=== PATIENT | female | born 1970 | race Caucasian/White ===

== ENCOUNTER → 2018-03-13 | Outpatient (CLI) | payer BC | END | disposition home or self-care (01) | LOC: US 08:55 | DX: N94.89 Other specified conditions associated with female genital organs and menstrual cycle (principal) | CPT/HCPCS: 76856 ==

== ENCOUNTER → 2018-03-14 | Outpatient (CLI) | payer BC ==
[~2018-03-14] MED LIST: IOHEXOL 180 MG/ML 10 ML VIAL.; LIDOCAINE 1% PF 2 ML VIAL.; methylPREDNISolone ACETATE 40 MG/ML VIAL.; methylPREDNISolone ACETATE 80 MG/ML VIAL.
== END | disposition home or self-care (01) ==
LOC: PNCL 08:48
DX: M54.16 Radiculopathy, lumbar region (principal); M48.061 Spinal stenosis, lumbar region without neurogenic claudication; M51.26 Other intervertebral disc displacement, lumbar region; I10 Essential (primary) hypertension; C44.80 Unspecified malignant neoplasm of overlapping sites of skin; Z92.21 Personal history of antineoplastic chemotherapy; Z98.51 Tubal ligation status; Z98.890 Other specified postprocedural states; Z98.84 Bariatric surgery status; Z79.899 Other long term (current) drug therapy; Z79.2 Long term (current) use of antibiotics
CPT/HCPCS: 62323; J1030; J1040; Q9965

== ENCOUNTER → 2019-07-04 | Outpatient (CLI) | payer BC ==
[~2019-07-04] MED LIST changes: +ALLO300T PO; +AMIT50TA PO; +ARIP5TAB13 PO; +BYSTOLIC10 MG PO; +CHOL2000 PO; +DULO60CA6 PO; -IOHEXOL 180 MG/ML 10 ML VIAL.; -LIDOCAINE 1% PF 2 ML VIAL.; +OMEP20CA10 PO; +POLY17PO29 PO; +ROPI0.5T PO; +TAMO20TA PO; -methylPREDNISolone ACETATE 40 MG/ML VIAL.; -methylPREDNISolone ACETATE 80 MG/ML VIAL.
--- NOTE | 2019-07-04 10:43 | RAD ---
Examination: EXT NON VASC LEFT History: History of melanoma involving the back in 2015. Palpable abnormality along the left axilla as reported by the patient. Comparison/Correlation: None Findings: Ultrasound imaging of the left axilla was performed. A lymph node is visualized involving the left lower axilla but this does not correspond to the site of reported palpable abnormality. Cortical thickness is unremarkable. Contour and size are unremarkable. There is no fluid collection, mass, or other suspicious finding at site of the reported palpable abnormality within the central to upper axillary region. There is no suspicious palpable nodule on physical examination by myself. Impression: No suspicious finding. Electronically signed by: Naresh Sher MD (07/04/2019 10:40 AM) [facility]
== END | disposition home or self-care (01) ==
LOC: US 11:08
PROVIDERS: ATTEND Family Medicine
DX: R22.32 Localized swelling, mass and lump, left upper limb (principal)
CPT/HCPCS: 76881

== ENCOUNTER 2019-07-28 03:31 | Emergency (ER) | payer BC ==
[~2019-07-28] VITALS: Ht 175.3 cm; Wt 81.6 kg
[2019-07-28 03:58] LABS: BILIRUBIN,URINE NEGATIVE (NEG); CLARITY,URINE CLEAR; COLOR,URINE YELLOW; NITRITE,URINE NEGATIVE (NEG); PH,URINE 5.5; PROTEIN,URINE NEGATIVE (NEG-TRACE); UROBILINOGEN,URINE 0.2 mg/dL (0.2 mg/dL)
[2019-07-28] MEDS ORDERED: IV NORMAL SALINE 1000ML BAG 1,000 ML IV SCH (04:00)
[2019-07-28] MEDS ORDERED: fentaNYL PF VIAL 100 MCG/2 ML VIAL IV PRN (04:00)
[2019-07-28 04:16] LABS: BASO # 0.1 x10^3/uL (0.0-0.2); BASO % 1 % (0-3); EOS # 0.5 x10^3/uL (0.0-0.7); EOS % 5 % (0-3); HEMATOCRIT 35.3 % (36.0-47.0); HEMOGLOBIN 11.7 g/dL (12.0-15.5); LYMPH # 3.1 x10^3/uL (1.0-4.8); LYMPH % 36 % (24-48); MEAN CORPUSCULAR HEMOGLOBIN 29 pg (25-35); MEAN CORPUSCULAR HGB CONC 33 g/dL (31-37); MEAN CORPUSCULAR VOLUME 87 fL (79-100); MONO # 0.6 x10^3/uL (0.0-1.1); MONO % 7 % (0-9); NEUT # 4.4 x10^3/uL (1.8-7.7); NEUT % 51 % (31-73); PLATELET COUNT 268 x10^3/uL (140-400); RED BLOOD COUNT 4.07 x10^6/uL (3.50-5.40); RED CELL DISTRIBUTION WIDTH 15.8 % (11.5-14.5); WHITE BLOOD COUNT 8.6 x10^3/uL (4.0-11.0)
[2019-07-28 04:25] LABS: GFR 58.7
[2019-07-28 04:26] LABS: BACTERIA,URINE 0 /HPF (0-FEW); SQUAMOUS EPITHELIAL CELL,UR MOD /LPF; WBC,URINE OCC /HPF (0-4)
[2019-07-28] MEDS ORDERED: ONDANSETRON PF 4 MG/2 ML VIAL. IV ONE (04:30)
[2019-07-28 04:31] LABS: ALBUMIN 3.5 g/dL (3.4-5.0); ALBUMIN/GLOBULIN RATIO 0.9 (1.0-1.7); TOTAL BILIRUBIN 0.2 mg/dL (0.2-1.0); TOTAL PROTEIN 7.3 g/dL (6.4-8.2)
--- NOTE | 2019-07-28 04:34 | PHYS DOC ---
Past Medical History Past Medical History: Anxiety, Depression, GERD, Hypertension Past Surgical History: , Hysterectomy, Tubal ligation, Other Additional Past Surgical Histo: sleeve gastrectomy, bilateral breast augmentation Alcohol Use: None Drug Use: None Adult General Chief Complaint Chief Complaint: ABDOMINAL PAIN [facility] HPI Patient is a 49-year-old female who presents with complaint of right upper quadrant abdominal pain that has been present for about the last 4 weeks. She states the pain radiates into her back. She states that she was scheduled for a gallbladder ultrasound for later this morning but she has not been able to manage her vomiting. She states that she has had several episodes of vomiting throughout the night. She rates her pain to be an 8 out of 10. She denies any fever. Patient states that nothing is improving her symptoms.[] Review of Systems Review of Systems Constitutional: Denies fever or chills [] Respiratory: Denies cough or shortness of breath [] Cardiovascular: No additional information not addressed in HPI [] GI: Complains of right upper quadrant abdominal pain with nausea and vomiting. Denies diarrhea [] Neurologic: Denies headache, focal weakness or sensory changes [] All other systems were reviewed and found to be within normal limits, except as documented in this note. Current Medications Current Medications Current Medications Medications (Trade) Dose Ordered Sig/Stanton Start Time Stop Time Status Last Admin Dose Admin Fentanyl Citrate (Fentanyl 2ml Vial) 50 mcg PRN Q15MIN PRN 07/28/19 04:00 07/29/19 03:59 07/28/19 04:11 50 MCG Ondansetron HCl (Zofran) 4 mg 1X ONCE 07/28/19 04:30 07/28/19 04:31 DC 07/28/19 04:11 4 MG Sodium Chloride 1,000 ml @ 1,000 mls/hr Q1H 07/28/19 04:00 07/28/19 04:59 DC 07/28/19 04:11 1,000 MLS/HR Allergies Allergies Allergies Coded Allergies Type Severity Reaction Last Updated Verified No Known Drug Allergies 03/14/18 No Physical Exam Physical Exam Constitutional: Well developed, well nourished, no acute distress, non-toxic appearance. [] HENT: Normocephalic, atraumatic, bilateral external ears normal, oropharynx igor [address], no oral exudates, nose normal. [] Eyes: PERRLA, EOMI, conjunctiva normal, no discharge. [] Neck: Normal range of motion, no tenderness, supple, no stridor. [] Cardiovascular: Mildly tachycardic rate with regular rhythm[] Lungs & Thorax: Bilateral breath sounds clear to auscultation [] Abdomen: Bowel sounds normal, soft, with moderate right upper quadrant tenderness. [] Skin: Warm, dry, no erythema, no rash. [] Extremities: No tenderness, no cyanosis, no clubbing, ROM intact. [] Neurologic: Alert and oriented X 3, no focal deficits noted. [] Current Patient Data Vital Signs Vital Signs Date Time Temp Pulse Resp B/P (MAP) Pulse Ox O2 Delivery O2 Flow Rate FiO2 07/28/19 04:11 14 98 Room Air 07/28/19 03:32 97.5 106 129/80 (96) 97.5 Lab Values Laboratory Tests Test 07/28/19 03:39 07/28/19 04:05 Urine Collection Type Unknown Urine Color Yellow Urine Clarity Clear Urine pH 5.5 Urine Specific [place] 1.010 Urine Protein Negative mg/dL (NEG-TRACE) Urine Glucose (UA) Negative mg/dL (NEG) Urine Ketones (Stick) Negative mg/dL (NEG) Urine Blood Small (NEG) Urine Nitrite Negative (NEG) Urine Bilirubin Negative (NEG) Urine Urobilinogen Dipstick 0.2 mg/dL (0.2 mg/dL) Urine Leukocyte Esterase Negative (NEG) Urine RBC 1-2 /HPF (0-2) Urine WBC Occ /HPF (0-4) Urine Squamous Epithelial Cells Mod /LPF Urine Bacteria 0 /HPF (0-FEW) Urine Mucus Slight /LPF White Blood Count 8.6 x10^3/uL (4.0-11.0) Red Blood Count 4.07 x10^6/uL (3.50-5.40) Hemoglobin 11.7 g/dL (12.0-15.5) L Hematocrit 35.3 % (36.0-47.0) L Mean Corpuscular Volume 87 fL (79-100) Mean Corpuscular Hemoglobin 29 pg (25-35) Mean Corpuscular Hemoglobin Concent 33 g/dL (31-37) Red Cell Distribution Width 15.8 % (11.5-14.5) H Platelet Count 268 x10^3/uL (140-400) Neutrophils (%) (Auto) 51 % (31-73) Lymphocytes (%) (Auto) 36 % (24-48) Monocytes (%) (Auto) 7 % (0-9) Eosinophils (%) (Auto) 5 % (0-3) H Basophils (%) (Auto) 1 % (0-3) Neutrophils # (Auto) 4.4 x10^3/uL (1.8-7.7) Lymphocytes # (Auto) 3.1 x10^3/uL (1.0-4.8) Monocytes # (Auto) 0.6 x10^3/uL (0.0-1.1) Eosinophils # (Auto) 0.5 x10^3/uL (0.0-0.7) Basophils # (Auto) 0.1 x10^3/uL (0.0-0.2) Sodium Level 142 mmol/L (136-145) Potassium Level 4.0 mmol/L (3.5-5.1) Chloride Level 105 mmol/L (98-107) Carbon Dioxide Level 26 mmol/L (21-32) Anion Gap 11 (6-14) Blood Urea Nitrogen 12 mg/dL (7-20) Creatinine 1.0 mg/dL (0.6-1.0) Estimated GFR (Cockcroft-Gault) 58.7 BUN/Creatinine Ratio 12 (6-20) Glucose Level 122 mg/dL (70-99) H Calcium Level 9.0 mg/dL (8.5-10.1) Total Bilirubin 0.2 mg/dL (0.2-1.0) Aspartate Amino Transferase (AST) 20 U/L (15-37) Alanine Aminotransferase (ALT) 21 U/L (14-59) Alkaline Phosphatase 96 U/L (46-116) Total Protein 7.3 g/dL (6.4-8.2) Albumin 3.5 g/dL (3.4-5.0) Albumin/Globulin Ratio 0.9 (1.0-1.7) L Lipase 272 U/L (73-393) Laboratory Tests 07/28/19 04:05 Laboratory Tests 07/28/19 04:05 EKG EKG [] Radiology/Procedures Radiology/Procedures [] Impressions: PROCEDURE: ABDOMEN LTD ABDOMEN LTD History: Right upper quadrant pain. Abdominal pain. Comparison: None. Technique: Transabdominal ultrasound images are obtained of the right upper quadrant. Findings: Visualized pancreas is normal seen due to overlying bowel gas. Liver is normal in echogenicity. Right hepatic lobe measures 15.9 cm. Portal flow is hepatopedal. Cholelithiasis. No gallbladder wall thickening. No pericholecystic fluid. Common bile duct caliber is normal measuring 5 mm in diameter. The right kidney measures 12.0 x 4.4 x 4.2 cm in length and is without evidence of obstruction or stone. Visualized portions of the aorta and IVC have normal caliber. IMPRESSION: 1. Cholelithiasis. Electronically signed by: Jose Huertas DO (07/28/2019 4:59 AM) [facility] Course & Med Decision Making Course & Med Decision Making Pertinent Labs and Imaging studies reviewed. (See chart for details) [] Dragon Disclaimer Dragon Disclaimer This electronic medical record was generated, in whole or in part, using a voice recognition dictation system. Departure Departure Impression: Primary Impression: Cholelithiasis Additional Impression: Biliary colic symptom Disposition: 01 HOME, SELF-CARE Condition: STABLE Referrals: MAU RUTH MD (PCP) Patient Instructions: Biliary Colic, Cholelithiasis Scripts Ondansetron (ONDANSETRON ODT) 4 Mg Tab.rapdis 1 TAB PO PRN Q6-8HRS PRN for NAUSEA, #15 TAB Prov: ANGEL HARRY Jr., DO 07/28/19 Oxycodone/Apap 5-325 (PERCOCET 5-325 MG TABLET ) 1 Each Tablet 1-2 EACH PO Q6H PRN for PAIN, #15 TAB pain Prov: ANGEL HARRY Jr., DO 07/28/19 Problem Qualifiers Primary Impression: Cholelithiasis Cholelithiasis location: gallbladder Cholecystitis presence: without cholecystitis Biliary obstruction: without biliary obstruction Qualified Codes: K80.20 - Calculus of gallbladder without cholecystitis without obstruction ANGEL HARRY Jr., DO Jul 28, 2019 04:34
--- NOTE | 2019-07-28 05:02 | RAD ---
ABDOMEN LTD History: Right upper quadrant pain. Abdominal pain. Comparison: None. Technique: Transabdominal ultrasound images are obtained of the right upper quadrant. Findings: Visualized pancreas is normal seen due to overlying bowel gas. Liver is normal in echogenicity. Right hepatic lobe measures 15.9 cm. Portal flow is hepatopedal. Cholelithiasis. No gallbladder wall thickening. No pericholecystic fluid. Common bile duct caliber is normal measuring 5 mm in diameter. The right kidney measures 12.0 x 4.4 x 4.2 cm in length and is without evidence of obstruction or stone. Visualized portions of the aorta and IVC have normal caliber. IMPRESSION: 1. Cholelithiasis. Electronically signed by: Jose Huertas DO (07/28/2019 4:59 AM) [facility]
[2019-07-28] MEDS ORDERED: ONDA4TAB12 PO (05:22)
[2019-07-28] MEDS ORDERED: OXYC1TAB15 PO (05:22)
[2019-07-28 05:30] VITALS: BP 115/73
== END 2019-07-28 05:28 | disposition home or self-care (01) ==
LOC: ER 03:31
DX: K80.20 Calculus of gallbladder without cholecystitis without obstruction (principal); R11.2 Nausea with vomiting, unspecified; K21.9 Gastro-esophageal reflux disease without esophagitis; I10 Essential (primary) hypertension; F41.9 Anxiety disorder, unspecified; F32.9 Major depressive disorder, single episode, unspecified; Z90.710 Acquired absence of both cervix and uterus; Z98.51 Tubal ligation status; Z98.890 Other specified postprocedural states
CPT/HCPCS: 99285; J2405; J3010; J7030; 36415; 76705; 80053; 81001; 83690; 85025; 96361; 96374; 96375

== ENCOUNTER 2019-07-30 03:36 | Inpatient (IN) | payer BC ==
[2019-07-30] VITALS (10 sets, daily range): BP systolic 122–156; BP diastolic 76–100
[~2019-07-30] VITALS: Ht 175.3 cm; Wt 83.5 kg
[~2019-07-30 03:36] MED LIST changes: +ONDA4TAB12 PO; +OXYC1TAB15 PO
[2019-07-30] MEDS ORDERED: HYDROmorphone 2 MG/ML VIAL IV/SQ PRN (04:00)
[2019-07-30] MEDS ORDERED: IV NORMAL SALINE 1000ML BAG 1,000 ML IV SCH (04:00)
[2019-07-30 04:06] LABS: BASO # 0.1 x10^3/uL (0.0-0.2); BASO % 1 % (0-3); EOS # 0.4 x10^3/uL (0.0-0.7); EOS % 5 % (0-3); HEMATOCRIT 33.1 % (36.0-47.0); HEMOGLOBIN 11.2 g/dL (12.0-15.5); LYMPH # 3.1 x10^3/uL (1.0-4.8); LYMPH % 42 % (24-48); MEAN CORPUSCULAR HEMOGLOBIN 30 pg (25-35); MEAN CORPUSCULAR HGB CONC 34 g/dL (31-37); MEAN CORPUSCULAR VOLUME 87 fL (79-100); MONO # 0.6 x10^3/uL (0.0-1.1); MONO % 8 % (0-9); NEUT # 3.3 x10^3/uL (1.8-7.7); NEUT % 44 % (31-73); PLATELET COUNT 244 x10^3/uL (140-400); RED BLOOD COUNT 3.79 x10^6/uL (3.50-5.40); RED CELL DISTRIBUTION WIDTH 15.8 % (11.5-14.5); WHITE BLOOD COUNT 7.5 x10^3/uL (4.0-11.0)
--- NOTE | 2019-07-30 04:10 | PHYS DOC ---
Past Medical History Past Medical History: Anxiety, Depression, GERD, Hypertension Past Surgical History: Cancer Surgery, , Hysterectomy, Tubal ligation, Other Additional Past Surgical Histo: sleeve gastrectomy,bilateral breast augmentation,L LUMPECTOMY,SKIN CANCER Alcohol Use: None Drug Use: None Adult General Chief Complaint Chief Complaint: ABDOMINAL PAIN HPI HPI Patient is a 49-year-old female who presents with complaint of recurrent right upper quadrant abdominal pain. Patient was seen here just a couple of days ago for the same complaint and patient states that pain has gotten severe at home again. She indicates that she took the Percocet and Zofran that was prescribed which helped but symptoms are out of control at this point. She rates pain at an 8 out of 10. She states that the pain radiates straight into her back.[] Review of Systems Review of Systems Constitutional: Denies fever or chills [] Respiratory: Denies cough or shortness of breath [] Cardiovascular: No additional information not addressed in HPI [] GI: [place] of right upper quadrant abdominal pain with nausea and vomiting. Denies diarrhea [] Integument: Denies rash or skin lesions [] Neurologic: Denies headache, focal weakness or sensory changes [] All other systems were reviewed and found to be within normal limits, except as documented in this note. Current Medications Current Medications Current Medications Medications (Trade) Dose Ordered Sig/Stanton Start Time Stop Time Status Last Admin Dose Admin Hydromorphone HCl (Dilaudid) 1 mg PRN Q15MIN PRN 07/30/19 04:00 07/31/19 03:59 07/30/19 04:07 1 MG Ondansetron HCl (Zofran) 4 mg 1X ONCE 07/30/19 04:30 07/30/19 04:31 DC 07/30/19 04:10 4 MG Sodium Chloride 1,000 ml @ 1,000 mls/hr Q1H 07/30/19 04:00 07/30/19 04:59 DC 07/30/19 04:08 1,000 MLS/HR Allergies Allergies Allergies Coded Allergies Type Severity Reaction Last Updated Verified No Known Drug Allergies 03/14/18 No Physical Exam Physical Exam Constitutional: Well developed, well nourished, in mild distress, non-toxic appearance. [] HENT: Normocephalic, atraumatic, bilateral external ears normal, oropharynx moist, no oral exudates, nose normal. [] Eyes: PERRLA, EOMI, conjunctiva normal, no discharge. [] Neck: Normal range of motion, no tenderness, supple, no stridor. [] Cardiovascular:Heart rate regular rhythm, no murmur [] Lungs & Thorax: Bilateral breath sounds clear to auscultation [] Abdomen: Bowel sounds normal, soft, with moderate right upper quadrant tenderness. [] Skin: Warm, dry, no erythema, no rash. [] Extremities: No tenderness, no cyanosis, no clubbing, ROM intact, no edema. [] Neurologic: Alert and oriented X 3, no focal deficits noted. [] Current Patient Data Vital Signs Vital Signs Date Time Temp Pulse Resp B/P (MAP) Pulse Ox O2 Delivery O2 Flow Rate FiO2 07/30/19 04:29 97 Room Air 07/30/19 04:07 14 07/30/19 03:39 97.7 86 145/111 (122) 97.7 Lab Values Laboratory Tests Test 07/30/19 03:57 07/30/19 05:00 White Blood Count 7.5 x10^3/uL (4.0-11.0) Red Blood Count 3.79 x10^6/uL (3.50-5.40) Hemoglobin 11.2 g/dL (12.0-15.5) L Hematocrit 33.1 % (36.0-47.0) L Mean Corpuscular Volume 87 fL (79-100) Mean Corpuscular Hemoglobin 30 pg (25-35) Mean Corpuscular Hemoglobin Concent 34 g/dL (31-37) Red Cell Distribution Width 15.8 % (11.5-14.5) H Platelet Count 244 x10^3/uL (140-400) Neutrophils (%) (Auto) 44 % (31-73) Lymphocytes (%) (Auto) 42 % (24-48) Monocytes (%) (Auto) 8 % (0-9) Eosinophils (%) (Auto) 5 % (0-3) H Basophils (%) (Auto) 1 % (0-3) Neutrophils # (Auto) 3.3 x10^3/uL (1.8-7.7) Lymphocytes # (Auto) 3.1 x10^3/uL (1.0-4.8) Monocytes # (Auto) 0.6 x10^3/uL (0.0-1.1) Eosinophils # (Auto) 0.4 x10^3/uL (0.0-0.7) Basophils # (Auto) 0.1 x10^3/uL (0.0-0.2) Sodium Level 138 mmol/L (136-145) Potassium Level 4.0 mmol/L (3.5-5.1) Chloride Level 101 mmol/L (98-107) Carbon Dioxide Level 25 mmol/L (21-32) Anion Gap 12 (6-14) Blood Urea Nitrogen 9 mg/dL (7-20) Creatinine 1.1 mg/dL (0.6-1.0) H Estimated GFR (Cockcroft-Gault) 52.6 BUN/Creatinine Ratio 8 (6-20) Glucose Level 101 mg/dL (70-99) H Calcium Level 8.9 mg/dL (8.5-10.1) Total Bilirubin 0.2 mg/dL (0.2-1.0) Aspartate Amino Transferase (AST) 21 U/L (15-37) Alanine Aminotransferase (ALT) 22 U/L (14-59) Alkaline Phosphatase 92 U/L (46-116) Total Protein 7.2 g/dL (6.4-8.2) Albumin 3.6 g/dL (3.4-5.0) Albumin/Globulin Ratio 1.0 (1.0-1.7) Lipase 175 U/L (73-393) Urine Collection Type Unknown Urine Color Yellow Urine Clarity Clear Urine pH 5.5 Urine Specific [place] <=1.005 Urine Protein Negative mg/dL (NEG-TRACE) Urine Glucose (UA) Negative mg/dL (NEG) Urine Ketones (Stick) Negative mg/dL (NEG) Urine Blood Negative (NEG) Urine Nitrite Negative (NEG) Urine Bilirubin Negative (NEG) Urine Urobilinogen Dipstick 0.2 mg/dL (0.2 mg/dL) Urine Leukocyte Esterase Negative (NEG) Urine RBC Rare /HPF (0-2) Urine WBC Rare /HPF (0-4) Urine Squamous Epithelial Cells Few /LPF Urine Bacteria 0 /HPF (0-FEW) Urine Mucus Slight /LPF Laboratory Tests 07/30/19 03:57 Laboratory Tests 07/30/19 03:57 EKG EKG [] Radiology/Procedures Radiology/Procedures [] Course & Med Decision Making Course & Med Decision Making Pertinent Labs and Imaging studies reviewed. (See chart for details) [] Dragon Disclaimer Dragon Disclaimer This electronic medical record was generated, in whole or in part, using a voice recognition dictation system. Departure Departure Impression: Primary Impression: Biliary colic Disposition: ADMITTED INPATIENT Admitting Physician: Mau Ruth Condition: IMPROVED Referrals: MAU RUTH MD (PCP) ANGEL HARRY Jr. DO Jul 30, 2019 04:10
[2019-07-30 04:13] LABS: CALCIUM 8.9 mg/dL (8.5-10.1); CREATININE 1.1 mg/dL (0.6-1.0); GFR 52.6
[2019-07-30 04:17] LABS: ALBUMIN 3.6 g/dL (3.4-5.0); TOTAL BILIRUBIN 0.2 mg/dL (0.2-1.0); TOTAL PROTEIN 7.2 g/dL (6.4-8.2)
[2019-07-30] MEDS ORDERED: ONDANSETRON PF 4 MG/2 ML VIAL. IV ONE (04:30)
[2019-07-30 05:28] LABS: BILIRUBIN,URINE NEGATIVE (NEG); CLARITY,URINE CLEAR; COLOR,URINE YELLOW; NITRITE,URINE NEGATIVE (NEG); PH,URINE 5.5; PROTEIN,URINE NEGATIVE (NEG-TRACE); UROBILINOGEN,URINE 0.2 mg/dL (0.2 mg/dL)
[2019-07-30 05:33] LABS: BACTERIA,URINE 0 /HPF (0-FEW); RBC,URINE RARE /HPF (0-2); SQUAMOUS EPITHELIAL CELL,UR FEW /LPF; WBC,URINE RARE /HPF (0-4)
[2019-07-30] MEDS ORDERED: ONDANSETRON PF 4 MG/2 ML VIAL. IV PRN ×2 (06:00→12:15)
[2019-07-30] MEDS: fentaNYL PF VIAL 100 MCG/2 ML VIAL IV PRN ×3 (06:42→11:28)
[2019-07-30] MEDS: IV NORMAL SALINE 1000ML BAG 1,000 ML IV SCH ×3 (06:43→21:08)
[2019-07-30] MEDS ORDERED: IBUP-1027 PO (07:41)
[2019-07-30] MEDS ORDERED: ACET500T68 PO (07:41)
[2019-07-30] MEDS ORDERED: NAPR-634 PO (07:41)
[2019-07-30] MEDS ORDERED: PANTOPRAZOLE IV PUSH 40 MG VIAL. IVP ONE (08:15)
[2019-07-30] MEDS ORDERED: BUPIVACAINE-EPI 0.25%-1:200000 MPF 30 ML VIAL. INJ ONE (08:45)
--- NOTE | 2019-07-30 09:54 | PDOC ---
Subjective: Subjective: 49 y/o female who has seen Dr. Mandujano recently for worsening RUQ pain w/ bloating and nausea - all exacerbated by eating. Pain radiates to epigastrium and to back. Admitted through ER last night. Objective: Vital Signs: Vital Signs Date Time Temp Pulse Resp B/P (MAP) Pulse Ox O2 Delivery O2 Flow Rate FiO2 07/30/19 09:30 Room Air 07/30/19 06:42 97 07/30/19 06:09 72 18 120/65 (83) 07/30/19 05:30 97.5 97.5 Labs: Laboratory Tests Test 07/30/19 03:57 07/30/19 05:00 White Blood Count 7.5 x10^3/uL Red Blood Count 3.79 x10^6/uL Hemoglobin 11.2 g/dL Hematocrit 33.1 % Mean Corpuscular Volume 87 fL Mean Corpuscular Hemoglobin 30 pg Mean Corpuscular Hemoglobin Concent 34 g/dL Red Cell Distribution Width 15.8 % Platelet Count 244 x10^3/uL Neutrophils (%) (Auto) 44 % Lymphocytes (%) (Auto) 42 % Monocytes (%) (Auto) 8 % Eosinophils (%) (Auto) 5 % Basophils (%) (Auto) 1 % Neutrophils # (Auto) 3.3 x10^3/uL Lymphocytes # (Auto) 3.1 x10^3/uL Monocytes # (Auto) 0.6 x10^3/uL Eosinophils # (Auto) 0.4 x10^3/uL Basophils # (Auto) 0.1 x10^3/uL Sodium Level 138 mmol/L Potassium Level 4.0 mmol/L Chloride Level 101 mmol/L Carbon Dioxide Level 25 mmol/L Anion Gap 12 Blood Urea Nitrogen 9 mg/dL Creatinine 1.1 mg/dL Estimated GFR (Cockcroft-Gault) 52.6 BUN/Creatinine Ratio 8 Glucose Level 101 mg/dL Calcium Level 8.9 mg/dL Total Bilirubin 0.2 mg/dL Aspartate Amino Transf (AST/SGOT) 21 U/L Alanine Aminotransferase (ALT/SGPT) 22 U/L Alkaline Phosphatase 92 U/L Total Protein 7.2 g/dL Albumin 3.6 g/dL Albumin/Globulin Ratio 1.0 Lipase 175 U/L Urine Collection Type Unknown Urine Color Yellow Urine Clarity Clear Urine pH 5.5 Urine Specific [place] <=1.005 Urine Protein Negative mg/dL Urine Glucose (UA) Negative mg/dL Urine Ketones (Stick) Negative mg/dL Urine Blood Negative Urine Nitrite Negative Urine Bilirubin Negative Urine Urobilinogen Dipstick 0.2 mg/dL Urine Leukocyte Esterase Negative Urine RBC Rare /HPF Urine WBC Rare /HPF Urine Squamous Epithelial Cells Few /LPF Urine Bacteria 0 /HPF Urine Mucus Slight /LPF Imaging: Abd SS 07/28 IMPRESSION: 1. Cholelithiasis. CBD normal - 5mm. HIDA 07/28 IMPRESSION: 1. The cystic duct and common bile duct are patent. Negative for acute cholecystitis. 2. The gallbladder ejection fraction is normal - 94%. PE: GEN: NAD - present HEENT: Atraumatic, PERRL LUNGS: CTAB HEART: RRR ABD: NABS, S/ND, epigastric to RUQ discomfort EXTREMITY: No edema SKIN: No rashes, no jaundice NEURO/PSYCH: A & O 3 A/P: RUQ pain, nausea, bloating Cholelithiasis - normal LFTs and CBD Anemia GERD - had EGD @ [facility] in 2017, on PPI S/p sleeve gastrectomy -- Await surgical opinion re: cholecystectomy/IOC. Check anemia parameters for completeness. Continue PPI - IV for now. YINKA JOSUE Jul 30, 2019 09:54
--- NOTE | 2019-07-30 09:59 | PDOC2 ---
CONSULT Date of Consult Date of Consult DATE: 07/30/19 TIME: 09:55 History of Present Illness Reason for Visit: The patient is a 49 year old female who reported to the ER due to abdominal pain. The pain has been located in the right upper quadrant. She presented initially a couple of days ago with similar complaints and a sonogram showed gallstones. She was then released, but returned with persistent and worsening pain. The pain radiates to the back with associated nausea. She has had less severe similar episodes over the last month. Past Medical History Past Medical History hypertension, prior melanoma Past Surgical History Past Surgical History Csection, abdominoplasty, lap hysterectomy, melanoma back surgery, lumpectomy for benign breast disease, laparoscopic sleeve procedure, back surgery Social History Quit Drugs: None Lives: with Family Current Problem List Problem List Problems Medical Problems: (1) Biliary colic Status: Acute Current Medications Current Medications Current Medications Hydromorphone HCl (Dilaudid) 1 mg PRN Q15MIN PRN IV/SQ PAIN GREATER THAN 3/10 Last administered on 07/30/19at 04:07; Start 07/30/19 at 04:00; Stop 07/31/19 at 03:59 Sodium Chloride 1,000 ml @ 1,000 mls/hr Q1H IV Last administered on 07/30/19at 04:08; Start 07/30/19 at 04:00; Stop 07/30/19 at 04:59; Status DC Ondansetron HCl (Zofran) 4 mg 1X ONCE IV Last administered on 07/30/19at 04:10; Start 07/30/19 at 04:30; Stop 07/30/19 at 04:31; Status DC Ondansetron HCl (Zofran) 4 mg PRN Q8HRS PRN IV NAUSEA/VOMITING Last admin istered on 07/30/19at 09:29; Start 07/30/19 at 06:00; Stop 07/31/19 at 05:59 Fentanyl Citrate (Fentanyl 2ml Vial) 50 mcg PRN Q1HR PRN IV SEVERE PAIN 7-10 Last administered on 07/30/19at 08:26; Start 07/30/19 at 06:00; Stop 07/31/19 at 05:59 Sodium Chloride 1,000 ml @ 125 mls/hr Q8H IV Last administered on 07/30/19at 06:43; Start 07/30/19 at 06:30; Stop 07/31/19 at 06:29 Pantoprazole Sodium (PROTONIX VIAL for IV PUSH) 40 mg 1X ONCE IVP Last administered on 07/30/19at 08:26; Start 07/30/19 at 08:15; Stop 07/30/19 at 08:17; Status DC Bupivacaine HCl/ Epinephrine Bitart (Sensorcaine-Epi 0.25%-1:860460 Mpf) 30 ml 1X ONCE INJ ; Start 07/30/19 at 08:45; Stop 07/30/19 at 08:46; Status DC Active Scripts Active Ondansetron Odt (Ondansetron) 4 Mg Tab.rapdis 1 Tab PO PRN Q6-8HRS PRN Percocet 5-325 Mg Tablet (Oxycodone/Acetaminophen) 1 Each Tablet 1-2 Each PO Q6H PRN pain Reported Acetaminophen 500 Mg Tablet 1 Tab PO PRN Q6HRS PRN 15 Days Ibuprofen 400 Mg Tablet 400 Mg PO PRN Q8HRS PRN Naproxen Sodium 220 Mg Tablet 220 Mg PO DAILY PRN Tamoxifen Citrate 20 Mg Tablet 1 Tab PO HS Allopurinol 300 Mg Tablet 1 Tab PO DAILY Vitamin D (Cholecalciferol (Vitamin D3)) 2,000 Unit Capsule 1 Cap PO DAILY Requip (Ropinirole Hcl) 0.5 Mg Tablet 0.25 Mg PO HS Abilify (Aripiprazole) 5 Mg Tablet 5 Mg PO DAILY Cymbalta (Duloxetine Hcl) 60 Mg Capsule. 1 Cap PO DAILY Miralax (Polyethylene Glycol 3350) 17 Gm Powd.pack 1 Packet PO DAILY Bystolic (Nebivolol) 10 Mg Tablet 10 Mg PO DAILY Amitriptyline Hcl 50 Mg Tablet 1 Tab PO QHS Omeprazole 20 Mg Capsule.dr 20 Mg PO DAILY Allergies Allergies: Coded Allergies: No Known Drug Allergies (Unverified , 03/14/18) ROS General: No: Chills, Night Sweats, Fatigue, Malaise, Appetite, Other PSYCHOLOGICAL ROS: No: Anxiety, Behavioral Disorder, Concentration difficultie, Decreased libido, Depression, Disorientation, Hallucinations, Hostility, Irritablity, Memory difficulties, Mood Swings, Obsessive thoughts, Physical abuse, Sexual abuse, Sleep disturbances, Suicidal ideation, Other Eyes: No Blurry vision, No Decreased vision, No Double vision, No Dry eyes, No Excessive tearing, No Eye Pain, No Itchy Eyes, No Loss of vision, No Photophobia, No Scotomata, No Uses contacts, No Uses glasses, No Other HEENT: No: Heacaches, Visual Changes, Hearing change, Nasal congestion, Nasal discharge, Oral lesions, Sinus pain, Sore Throat, Epistaxis, Sneezing, Snoring, Tinnitus, Vertigo, Vocal changes, Other ALLERGY AND IMMUNOLOGY: No: Hives, Insect Bite Sensitivity, Itchy/Watery Eyes, Nasal Congestion, Post Nasal Drip, Seasonal Allergies, Other ENDOCRINE: No: Breast Changes, Galactorrhea, Hair Pattern Changes, Hot Flashes, Malaise/lethargy, Mood Swings, Palpitations, Polydipsia/polyuria, Skin Changes, Temperature Intolerance, Unexpected Weight Changes, Other Cardiovascular: No Chest Pain, No Palpitations, No Orthopnea, No Paroxysmal Noc. Dyspnea, No Edema, No Lt Headedness, No Other Gastrointestinal: Yes Nausea Genitourinary: No Dysuria, No Frequency, No Incontinence, No Hematuria, No Retention, No Discharge, No Urgency, No Pain, No Flank Pain, No Other, No , No , No , No , No , No , No Musculoskeletal: No Gait Disturbance, No Joint Pain, No Joint Stiffness, No Joint Swelling, No Muscle Pain, No Muscular Weakness, No Pain In:, No Swelling In:, No Other Neurological: No Behavorial Changes, No Bowel/Bladder ControlChng, No Confusion, No Dizziness, No Gait Disturbance, No Headaches, No Impaired Coord/balance, No Memory Loss, No Numbness/Tingling, No Seizures, No Speech Problems, No Tremors, No Visual Changes, No Weakness, No Other Skin: No Dry Skin, No Eczema, No Hair Changes, No Lumps, No Mole Changes, No Mottling, No Nail Changes, No Pruritus, No Rash, No Skin Lesion Changes, No Other, No Acne Physical Exam General: Alert, Oriented X3, Cooperative HEENT: Atraumatic Lungs: Clear to auscultation Heart: Regular rate Abdomen: Soft (tender with palpation RUQ) Extremities: No clubbing, No cyanosis Skin: No rashes Neuro: Normal speech Psych/Mental Status: Mental status NL Vitals VITALS Vital Signs Date Time Temp Pulse Resp B/P (MAP) Pulse Ox O2 Delivery O2 Flow Rate FiO2 07/30/19 09:30 Room Air 07/30/19 06:42 97 07/30/19 06:09 72 18 120/65 (83) 07/30/19 05:30 97.5 97.5 Labs Labs Laboratory Tests Test 07/30/19 03:57 07/30/19 05:00 White Blood Count 7.5 x10^3/uL (4.0-11.0) Red Blood Count 3.79 x10^6/uL (3.50-5.40) Hemoglobin 11.2 g/dL (12.0-15.5) Hematocrit 33.1 % (36.0-47.0) Mean Corpuscular Volume 87 fL (79-100) Mean Corpuscular Hemoglobin 30 pg (25-35) Mean Corpuscular Hemoglobin Concent 34 g/dL (31-37) Red Cell Distribution Width 15.8 % (11.5-14.5) Platelet Count 244 x10^3/uL (140-400) Neutrophils (%) (Auto) 44 % (31-73) Lymphocytes (%) (Auto) 42 % (24-48) Monocytes (%) (Auto) 8 % (0-9) Eosinophils (%) (Auto) 5 % (0-3) Basophils (%) (Auto) 1 % (0-3) Neutrophils # (Auto) 3.3 x10^3/uL (1.8-7.7) Lymphocytes # (Auto) 3.1 x10^3/uL (1.0-4.8) Monocytes # (Auto) 0.6 x10^3/uL (0.0-1.1) Eosinophils # (Auto) 0.4 x10^3/uL (0.0-0.7) Basophils # (Auto) 0.1 x10^3/uL (0.0-0.2) Sodium Level 138 mmol/L (136-145) Potassium Level 4.0 mmol/L (3.5-5.1) Chloride Level 101 mmol/L (98-107) Carbon Dioxide Level 25 mmol/L (21-32) Anion Gap 12 (6-14) Blood Urea Nitrogen 9 mg/dL (7-20) Creatinine 1.1 mg/dL (0.6-1.0) Estimated GFR (Cockcroft-Gault) 52.6 BUN/Creatinine Ratio 8 (6-20) Glucose Level 101 mg/dL (70-99) Calcium Level 8.9 mg/dL (8.5-10.1) Total Bilirubin 0.2 mg/dL (0.2-1.0) Aspartate Amino Transf (AST/SGOT) 21 U/L (15-37) Alanine Aminotransferase (ALT/SGPT) 22 U/L (14-59) Alkaline Phosphatase 92 U/L (46-116) Total Protein 7.2 g/dL (6.4-8.2) Albumin 3.6 g/dL (3.4-5.0) Albumin/Globulin Ratio 1.0 (1.0-1.7) Lipase 175 U/L (73-393) Urine Collection Type Unknown Urine Color Yellow Urine Clarity Clear Urine pH 5.5 Urine Specific [place] <=1.005 Urine Protein Negative mg/dL (NEG-TRACE) Urine Glucose (UA) Negative mg/dL (NEG) Urine Ketones (Stick) Negative mg/dL (NEG) Urine Blood Negative (NEG) Urine Nitrite Negative (NEG) Urine Bilirubin Negative (NEG) Urine Urobilinogen Dipstick 0.2 mg/dL (0.2 mg/dL) Urine Leukocyte Esterase Negative (NEG) Urine RBC Rare /HPF (0-2) Urine WBC Rare /HPF (0-4) Urine Squamous Epithelial Cells Few /LPF Urine Bacteria 0 /HPF (0-FEW) Urine Mucus Slight /LPF Laboratory Tests Test 07/30/19 03:57 07/30/19 05:00 White Blood Count 7.5 x10^3/uL (4.0-11.0) Red Blood Count 3.79 x10^6/uL (3.50-5.40) Hemoglobin 11.2 g/dL (12.0-15.5) Hematocrit 33.1 % (36.0-47.0) Mean Corpuscular Volume 87 fL (79-100) Mean Corpuscular Hemoglobin 30 pg (25-35) Mean Corpuscular Hemoglobin Concent 34 g/dL (31-37) Red Cell Distribution Width 15.8 % (11.5-14.5) Platelet Count 244 x10^3/uL (140-400) Neutrophils (%) (Auto) 44 % (31-73) Lymphocytes (%) (Auto) 42 % (24-48) Monocytes (%) (Auto) 8 % (0-9) Eosinophils (%) (Auto) 5 % (0-3) Basophils (%) (Auto) 1 % (0-3) Neutrophils # (Auto) 3.3 x10^3/uL (1.8-7.7) Lymphocytes # (Auto) 3.1 x10^3/uL (1.0-4.8) Monocytes # (Auto) 0.6 x10^3/uL (0.0-1.1) Eosinophils # (Auto) 0.4 x10^3/uL (0.0-0.7) Basophils # (Auto) 0.1 x10^3/uL (0.0-0.2) Sodium Level 138 mmol/L (136-145) Potassium Level 4.0 mmol/L (3.5-5.1) Chloride Level 101 mmol/L (98-107) Carbon Dioxide Level 25 mmol/L (21-32) Anion Gap 12 (6-14) Blood Urea Nitrogen 9 mg/dL (7-20) Creatinine 1.1 mg/dL (0.6-1.0) Estimated GFR (Cockcroft-Gault) 52.6 BUN/Creatinine Ratio 8 (6-20) Glucose Level 101 mg/dL (70-99) Calcium Level 8.9 mg/dL (8.5-10.1) Total Bilirubin 0.2 mg/dL (0.2-1.0) Aspartate Amino Transf (AST/SGOT) 21 U/L (15-37) Alanine Aminotransferase (ALT/SGPT) 22 U/L (14-59) Alkaline Phosphatase 92 U/L (46-116) Total Protein 7.2 g/dL (6.4-8.2) Albumin 3.6 g/dL (3.4-5.0) Albumin/Globulin Ratio 1.0 (1.0-1.7) Lipase 175 U/L (73-393) Urine Collection Type Unknown Urine Color Yellow Urine Clarity Clear Urine pH 5.5 Urine Specific [place] <=1.005 Urine Protein Negative mg/dL (NEG-TRACE) Urine Glucose (UA) Negative mg/dL (NEG) Urine Ketones (Stick) Negative mg/dL (NEG) Urine Blood Negative (NEG) Urine Nitrite Negative (NEG) Urine Bilirubin Negative (NEG) Urine Urobilinogen Dipstick 0.2 mg/dL (0.2 mg/dL) Urine Leukocyte Esterase Negative (NEG) Urine RBC Rare /HPF (0-2) Urine WBC Rare /HPF (0-4) Urine Squamous Epithelial Cells Few /LPF Urine Bacteria 0 /HPF (0-FEW) Urine Mucus Slight /LPF Assessment/Plan Assessment/Plan 49 year old female with RUQ pain, recurrent, gallstones, nml LFTs and WBC; rec lap anaid. The details and risks of surgery were discussed with the patient. She understands and would like to proceed. PHYLICIA FINLEY MD Jul 30, 2019 09:59
[2019-07-30] MEDS: PANTOPRAZOLE IV PUSH 40 MG VIAL. IVP SCH (10:00)
[2019-07-30] MEDS ORDERED: BUPIVACAINE-EPI 0.5%-1:200000 MPF 30 ML VIAL. INJ ONE (10:15)
[2019-07-30] MEDS ORDERED: PROPOFOL 20 ML IV ONE (10:40)
[2019-07-30] MEDS ORDERED: ONDANSETRON PF 4 MG/2 ML VIAL. ONE (10:41)
[2019-07-30] MEDS ORDERED: LIDOCAINE 2% PF 5 ML VIAL. ONE (10:41)
[2019-07-30] MEDS ORDERED: fentaNYL PF VIAL 100 MCG/2 ML VIAL ONE ×3 (10:41→12:28)
[2019-07-30] MEDS ORDERED: ROCURONIUM 50 MG/5 ML VIAL. ONE (10:41)
[2019-07-30] MEDS ORDERED: MIDAZOLAM HCL/PF 2 MG/2 ML VIAL. ONE (10:41)
[2019-07-30] MEDS ORDERED: IOHEXOL 300 MG/ML 50 ML VIAL. ONE (11:58)
[2019-07-30] MEDS ORDERED: SURGICEL HEMOSTAT 4X8 EACH. ONE (11:58)
[2019-07-30] MEDS ORDERED: BUPIVACAINE MPF 0.5% 30 ML VIAL. ONE (11:59)
[2019-07-30] MEDS ORDERED: IV RINGERS,LACTATED 1000ML 1,000 ML IV SCH (12:03)
[2019-07-30] MEDS ORDERED: HYDROmorphone 2 MG/ML VIAL IV PRN (12:15)
[2019-07-30] MEDS ORDERED: LIDOCAINE 1% PF 2 ML VIAL. ID PRN (12:15)
[2019-07-30] MEDS ORDERED: MORPHINE SULFATE 2 MG/ML VIAL. IV PRN (12:15)
[2019-07-30] MEDS ORDERED: fentaNYL PF VIAL 100 MCG/2 ML VIAL IV PRN ×2 (12:15)
[2019-07-30] MEDS ORDERED: PROCHLORPERAZINE 10 MG/2 ML VIAL. IV PRN (12:15)
[2019-07-30] MEDS ORDERED: SEVOFLURANE 61 TO 120 MINUTES. IH ONE (12:29)
[2019-07-30] MEDS ORDERED: NEOSTIGMINE METHYLSULFATE 5 MG/5 ML SYRINGE. ONE (12:29)
[2019-07-30] MEDS ORDERED: GLYCOPYRROLATE 1 MG/5 ML VIAL. ONE (12:30)
[2019-07-30] MEDS ORDERED: ePHEDrine PF IN SALINE 50 MG/10 ML SYRINGE. IV ONE (12:31)
[2019-07-30] MEDS ORDERED: KETOROLAC 30 MG/ML VIAL. ONE (12:36)
--- NOTE | 2019-07-30 13:37 | PDOC4 ---
Operative Note Operative Note Operative Note: Preoperative Diagnosis: Symptomatic cholelithiasis Postoperative Diagnosis: Same Procedure: Laparoscopic cholecystectomy with intraoperative cholangiogram Surgeons: Abdi Personal Assistant: Ana Maria FERRO Anesthesia: Gen. Estimated Blood Loss: 10 mL Specimen: Gallbladder to pathology Drains: None Complications: None Indications: The patient is a 49-year-old female who is been experiencing recurrent upper abdominal pain consistent with biliary colic. Surgical treatment was offered by means of a laparoscopic cholecystectomy. The risks of surgery were discussed which include bleeding, infection, bile duct injury, bile leak, pain, the potential for additional surgeries or procedures. The patient understands and would like to proceed. Description: The patient was taken to the operating room and laid supine on the operating table. General anesthesia was performed. The abdomen was prepped with ChloraPrep and draped in a standard surgical fashion. A small incision was made in the patient's right abdomen through which a visualized 5 mm trocar was inserted. A pneumoperitoneum was created and the laparoscope was introduced. In the upper midabdomen a 5 mm trocar was inserted and in the right upper quadrant two 2.3 mm mini lap graspers were inserted. The gallbladder was retracted cephalad. The cystic duct was dissected free from surrounding tissues. One clip was placed on the duct near the gallbladder junction. An opening was made in the duct and a cholangiocatheter placed within and secured with a clip. Using contrast dye and fluoroscopy an intraoperative cholangiogram was performed that appeared unremarkable. The clip and catheter were then withdrawn. Three clips were placed on the cystic duct and it was divided. The cystic artery was then identified, dissected free, doubly clipped and divided as well. The gallbladder was then mobilized away from the liver with cautery. The inferior 5 millimeter trocar was exchanged for an 11 millimeter trocar. The gallbladder was then placed in an endoscopic bag and extracted at that trocar site. The fascia there was closed with an 0 Vicryl suture. All blood and irrigation fluid was suctioned and hemostasis was good. The remaining ports were removed and the pneumoperitoneum was relieved. The skin incisions were injected with half percent Marcaine with epinephrine, and all were closed using 4-0 Monocryl suture. Steri-Strips and dressings were then applied. The patient tolerated the procedure well and was sent to the recovery room in stable condition. At the end of the case all counts were correct. PHYLICIA FINLEY MD 13, 2019 13:37
[2019-07-30] MEDS ORDERED: oxyCODONE/APAP 5/325 1 TAB TABLET PO PRN (13:45)
--- NOTE | 2019-07-30 14:45 | RAD ---
Examination: CHOLANGIOGRAM INTRAOPERATIVE History: Intraoperative cholangiogram. Cholelithiasis. Comparison/Correlation: None Findings: Fluoroscopy was utilized for 0.34 minutes. A total of 4 images were provided. There is no suspicious filling defect involving the cystic duct remnant or the common bile duct. The common hepatic duct and intrahepatic biliary tree are also grossly unremarkable on images provided. Contrast is noted within the duodenum. Impression: No suspicious filling defects or evidence of stricture. Electronically signed by: Naresh Sher MD (07/30/2019 2:43 PM) [facility]
[2019-07-30] MEDS: oxyCODONE/APAP 5/325 1 TAB TABLET PO PRN ×3 (15:16→23:24)
--- NOTE | 2019-07-30 22:17 | HP ---
ADMIT DATE: 07/30/2019 CHIEF COMPLAINT AND HISTORY OF PRESENT ILLNESS: This 49-year-old white female is well known to me from followup. The patient has had over the last several weeks, right upper quadrant abdominal pain. It has worsened over the last week or so associated with nausea and vomiting, made worse by eating. He presented for the second time /in a week for suprapubic abdominal pain, nausea, vomiting through the Emergency Room and was admitted for presumed biliary colic. She did have a HIDA scan that was normal within the last week and an ultrasound of the abdomen showing cholelithiasis. PAST MEDICAL HISTORY: Remarkable for hypertension, GERD, depression, anxiety. PAST SURGICAL HISTORY: Remarkable for prior melanoma removal, , hysterectomy, tubal ligation, bilateral breast augmentations. MEDICATIONS: Brought with the patient, listed on the computer and have been addressed. ALLERGIES: She has no known drug allergies. SOCIAL HISTORY: Nonsmoker, nondrinker, does not use drugs. , lives at home with her and children. FAMILY HISTORY: Positive for breast cancer in the mother, COPD in her father. REVIEW OF SYSTEMS: As mentioned above. PHYSICAL EXAMINATION: GENERAL: She is well-developed, well-nourished white female who is miserable. VITAL SIGNS: Stable. She is afebrile. HEAD, EYES, EARS, NOSE AND THROAT: Unremarkable. No icterus. NECK: Supple, without adenopathy or thyromegaly. CHEST: Clear to auscultation and percussion. HEART: Regular rate and rhythm without S3, S4 or murmur. ABDOMEN: Reveals right upper quadrant tenderness with positive Bedoya sign. EXTREMITIES: Without cyanosis, clubbing, edema. NEUROLOGIC: She is intact. LABORATORY DATA: Initial laboratory shows a CBC that is essentially unremarkable as well as a CMP that was likewise unremarkable. Urinalysis is likewise unremarkable. IMPRESSION: Biliary colic, intractable. PLAN: The patient has been admitted. GI and Surgery will be consulted. The patient will be monitored, managed and treated appropriately. MAU RUTH MD DR: GOLDEN/penny JOB#: [id number] / [id number]
[2019-07-31 03:00] VITALS: BP 122/71
[2019-07-31] MEDS: oxyCODONE/APAP 5/325 1 TAB TABLET PO PRN (05:16)
[2019-07-31 07:00] VITALS: BP 144/88
[2019-07-31] MEDS: PANTOPRAZOLE IV PUSH 40 MG VIAL. IVP SCH (07:30)
--- NOTE | 2019-07-31 08:50 | PDOC ---
SURGICAL PROGRESS NOTE Subjective tolerating diet feels great Vital Signs Vital Signs Date Time Temp Pulse Resp B/P (MAP) Pulse Ox O2 Delivery O2 Flow Rate FiO2 07/31/19 07:06 Room Air 07/31/19 07:00 92 16 144/88 (106) 99 07/31/19 03:00 98.4 98.4 I&O Intake and Output 07/31/19 07:00 Output Total 10 ml Balance -10 ml Output Estimated Blood Loss 10 ml # Voids 5 General: Alert, Oriented X3, Cooperative Abdomen: Soft, Other (ND, lap dressings dry) Labs Laboratory Tests Test 07/30/19 03:57 07/30/19 05:00 White Blood Count 7.5 x10^3/uL (4.0-11.0) Red Blood Count 3.79 x10^6/uL (3.50-5.40) Hemoglobin 11.2 g/dL (12.0-15.5) Hematocrit 33.1 % (36.0-47.0) Mean Corpuscular Volume 87 fL (79-100) Mean Corpuscular Hemoglobin 30 pg (25-35) Mean Corpuscular Hemoglobin Concent 34 g/dL (31-37) Red Cell Distribution Width 15.8 % (11.5-14.5) Platelet Count 244 x10^3/uL (140-400) Neutrophils (%) (Auto) 44 % (31-73) Lymphocytes (%) (Auto) 42 % (24-48) Monocytes (%) (Auto) 8 % (0-9) Eosinophils (%) (Auto) 5 % (0-3) Basophils (%) (Auto) 1 % (0-3) Neutrophils # (Auto) 3.3 x10^3/uL (1.8-7.7) Lymphocytes # (Auto) 3.1 x10^3/uL (1.0-4.8) Monocytes # (Auto) 0.6 x10^3/uL (0.0-1.1) Eosinophils # (Auto) 0.4 x10^3/uL (0.0-0.7) Basophils # (Auto) 0.1 x10^3/uL (0.0-0.2) Sodium Level 138 mmol/L (136-145) Potassium Level 4.0 mmol/L (3.5-5.1) Chloride Level 101 mmol/L (98-107) Carbon Dioxide Level 25 mmol/L (21-32) Anion Gap 12 (6-14) Blood Urea Nitrogen 9 mg/dL (7-20) Creatinine 1.1 mg/dL (0.6-1.0) Estimated GFR (Cockcroft-Gault) 52.6 BUN/Creatinine Ratio 8 (6-20) Glucose Level 101 mg/dL (70-99) Calcium Level 8.9 mg/dL (8.5-10.1) Total Bilirubin 0.2 mg/dL (0.2-1.0) Aspartate Amino Transf (AST/SGOT) 21 U/L (15-37) Alanine Aminotransferase (ALT/SGPT) 22 U/L (14-59) Alkaline Phosphatase 92 U/L (46-116) Total Protein 7.2 g/dL (6.4-8.2) Albumin 3.6 g/dL (3.4-5.0) Albumin/Globulin Ratio 1.0 (1.0-1.7) Lipase 175 U/L (73-393) Urine Collection Type Unknown Urine Color Yellow Urine Clarity Clear Urine pH 5.5 Urine Specific [place] <=1.005 Urine Protein Negative mg/dL (NEG-TRACE) Urine Glucose (UA) Negative mg/dL (NEG) Urine Ketones (Stick) Negative mg/dL (NEG) Urine Blood Negative (NEG) Urine Nitrite Negative (NEG) Urine Bilirubin Negative (NEG) Urine Urobilinogen Dipstick 0.2 mg/dL (0.2 mg/dL) Urine Leukocyte Esterase Negative (NEG) Urine RBC Rare /HPF (0-2) Urine WBC Rare /HPF (0-4) Urine Squamous Epithelial Cells Few /LPF Urine Bacteria 0 /HPF (0-FEW) Urine Mucus Slight /LPF Problem List Problems Medical Problems: (1) Biliary colic Status: Acute Assessment/Plan s/p anaid ok to ok home Fu 2 weeks HAZEL BARBOZA [employer] 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
--- NOTE | 2019-07-31 09:22 | PDOC ---
Subjective: Subjective: A little sore post-op but overall feels so much better. Tolerating diet and passing gas. Plans to discharge today. No previous screening colonoscopy - would like to arrange soon. Objective: Vital Signs: Vital Signs Date Time Temp Pulse Resp B/P (MAP) Pulse Ox O2 Delivery O2 Flow Rate FiO2 07/31/19 07:06 Room Air 07/31/19 07:00 92 16 144/88 (106) 99 07/31/19 03:00 98.4 98.4 Imaging: IOC 07/30 Impression: No suspicious filling defects or evidence of stricture. PE: GEN: NAD, sitting up in bed, dressed to leave, present LUNGS: CTAB HEART: RRR ABD: soft, non-distended NEURO/PSYCH: A & O 3 A/P: S/p cholecystectomy w/ normal IOC -- DC per primary and surgery. Follow-up w/ Dr. Mandujano for screening colonoscopy after recovery from surgery - our office can arrange. YINKA JOSUE Jul 31, 2019 09:22
--- NOTE | 2019-07-31 21:31 | DS ---
DATE OF DISCHARGE: 07/31/2019 PRIMARY DIAGNOSIS: Biliary colic. ADDITIONAL DIAGNOSES: Hypertension and gastroesophageal reflux disease. PROCEDURES: Laparoscopic cholecystectomy. CHIEF COMPLAINT AND HISTORY OF PRESENT ILLNESS: This 49-year-old white female well known to me from followup. The patient over the last several weeks had right upper quadrant pain. It worsened over the last week or so. Nausea and vomiting made worse by eating. She presented for the second time in a week with right upper quadrant abdominal pain, nausea, vomiting through the Emergency Room and admitted for presumed biliary colic. She did have a HIDA scan that was normal last week or so and ultrasound of the abdomen showed cholelithiasis. SUMMARY OF STAY: The patient was admitted. Nausea and pain were controlled. Labs were fairly unremarkable. Surgery saw her, did a laparoscopic cholecystectomy with resolution of her pain other than postoperative pain from surgery and she was felt ready for discharge on the and this was accomplished. DISPOSITION: The patient is discharged to home. DIET: As tolerated. ACTIVITY: As tolerated, office in 2 weeks. DISCHARGE MEDICATIONS: Listed on the med rec and have been addressed. MAU RUTH MD DR: GOLDEN/penny JOB#: [id number] / [id number]
--- NOTE | 2019-08-01 16:06 | PATHOLOGY ---
[facility] Accession Number: [id number] . 01 Material submitted: . gallbladder - GALLBLADDER AND CONTENTS . 01 Clinical history: . RUQ pain cholelithiasis . 02 Diagnosis: Gallbladder, laparoscopic cholecystectomy: - Cholelithiasis. - Chronic cholecystitis with focally increased eosinophils. LBQ 08/01/2019 1006 Local . 02 Comment: There is no evidence of malignancy. (JPM/db; 08/01/2019) . 02 Electronically signed: . Juan Ramon Licona MD, Pathologist NPI- [id number] . 01 Gross description: . Received in formalin labeled "Appl, Samantha, gallbladder and contents," is an intact gallbladder measuring 5.1 x 3.4 x 2.1 cm in greatest dimensions. The serosal surface is wrinkled, pale lopez-joseph to focally hemorrhagic and partially adipose-covered in appearance. A defect is noted in the hepatic surface, measuring 0.1 x 0.1 cm and extending to within 1.5 cm of the infundibulum. Opening the specimen reveals a granular, green-joseph mucosa measuring 0.1 cm in thickness, with a gallbladder wall thickness of up to 0.4 cm. No polyps or nodules are identified grossly. Two granular, yellow-green calculi are present within the specimen, measuring 1.5 cm each in maximum dimension. Rug Cutter Helper sections of the infundibulum, body and fundus are submitted in cassette A1, to representatively include the hepatic surface defect. ([facility]; 07/31/2019) XDC/XDC 07/31/2019 0752 Local . 02 Pathologist provided ICD-10: K80.10 . 02 CPT . 215211 Specimen Comment: A courtesy copy of this report has been sent to [phone] Specimen Comment: [id number], Specimen Comment: Report sent to ,DR HARRY / DR RUTH Performed at: [address], [place] [id number] MD Alexis Dang MD Phone: [phone] Performed at: 02 [facility] [address] [place], [place] [id number] MD Juan Ramon Licona MD Phone: [phone]
== END 2019-07-31 09:15 | disposition home or self-care (01) | DRG 419 ==
LOC: ER 03:36 → 4 NORTH 05:52
PROVIDERS: ADMIT Family Medicine; ATTEND Family Medicine
PROC: BF101ZZ Fluoroscopy of Bile Ducts using Low Osmolar Contrast (ICD-10-PCS; 2019-07-30)
PROC: 0FT44ZZ Resection of Gallbladder, Percutaneous Endoscopic Approach (ICD-10-PCS; principal; 2019-07-30 11:45)
DX: K80.70 Calculus of gallbladder and bile duct without cholecystitis without obstruction (principal); D64.9 Anemia, unspecified; I10 Essential (primary) hypertension; K21.9 Gastro-esophageal reflux disease without esophagitis; Z80.3 Family history of malignant neoplasm of breast; Z82.5 Family history of asthma and other chronic lower respiratory diseases; Z85.820 Personal history of malignant melanoma of skin; Z90.710 Acquired absence of both cervix and uterus; F32.9 Major depressive disorder, single episode, unspecified; F41.9 Anxiety disorder, unspecified; Z98.51 Tubal ligation status; Z98.84 Bariatric surgery status
CPT/HCPCS: 36415; 74300; 76705; 78227; 80053; 81001; 82607; 83540; 83550; 83690; 85025; 96361; 96374; 96375; A7015; A9537; C9113; J0171; J0696; J1170; J1885; J2001; J2250; J2405; J2704; J2710; J3010; J3490; J7030; J7120; Q9967; 99285-25; G0378

== ENCOUNTER → 2021-12-14 | Outpatient (CLI) | payer OTHER ==
[~2021-12-14] MED LIST changes: +ACET500T68 PO; -DULO60CA6 PO; +DULO60CA7 PO; +IBUP-1027 PO; +NAPR-634 PO; -OMEP20CA10 PO; +OMEP20CA16 PO
--- NOTE | 2021-12-14 11:23 | KCIC ---
EXAMINATION: MRI brain without IV contrast INDICATION: Left-sided weakness, status post fall down. COMPARISON: None TECHNIQUE: MRI of the brain was performed using high-resolution multiplanar multisequence imaging. FINDINGS: There is no evidence of acute or subacute infarct, intracranial hemorrhage, extra-axial fluid collect ion, mass, or mass effect. Major arterial flow-voids are present. There are few scattered foci of T2/ FLAIR hyperintensity within the supratentorial white matter, indeterminate. The paranasal sinuses and mastoid air cells are clear. The orbital contents appear within normal limi ts. IMPRESSION: 1. No evidence of significant intracranial abnormality. 2. A few scattered foci of T2/FLAIR hyperintensity within the supratentorial white matter, indetermin ate. Etiology includes chronic microangiopathic disease, sequelae of chronic migraines, demyelinating disease or sequelae of vasculitis. Electronically signed by: Juan A Toth MD (12/14/2021 9:21 AM) [id number]
== END ==
LOC: KCIC MRI 08:00
PROVIDERS: ATTEND Family Medicine
DX: G93.89 Other specified disorders of brain (principal); H53.9 Unspecified visual disturbance; M62.81 Muscle weakness (generalized)
CPT/HCPCS: 70551

== ENCOUNTER 2022-01-10 21:11 | Inpatient (IN) | payer OTHER ==
[~2022-01-10] VITALS: Ht 175.3 cm; Wt 94.3 kg
--- NOTE | 2022-01-10 22:31 | PHYS DOC ---
Past Medical History Past Medical History: Anxiety, Depression, GERD, Hypertension Additional Past Medical Histor: BACK ISSUES Past Surgical History: No Surgical History Additional Past Surgical Histo: sleeve gastrectomy,bilateral breast augmentation,L LUMPECTOMY,SKIN CANCER Smoking Status: Never Smoker Alcohol Use: None Drug Use: None General Adult EDM: Chief Complaint: FATIGUE HPI: HPI: Patient is a 51 year old female presents to the ER with multiple falls, generalized weakness and altered mental status. Family states that has been ongoing progressively for the last 4 weeks. Denies any fevers or chills. Reports nausea vomiting decreased p.o. intake. Patient was seen by a pain management doctor today for her epidural shots for chronic low back pain when she was found to be with a low blood pressure and tachycardia and was sent to the ER for evaluation. Review of Systems: Review of Systems: Constitutional: Fatigue and generalized weakness denies fever or chills. [] Eyes: Denies change in visual acuity. [] HENT: Denies nasal congestion or sore throat. [] Respiratory: Denies cough or shortness of breath. [] Cardiovascular: Denies chest pain or edema. [] GI: Nausea vomiting decreased p.o. intake no abdominal pain : Denies dysuria. [] Musculoskeletal: Chronic low back pain denies back pain or joint pain. [] Integument: Denies rash. [] Neurologic: Denies headache, focal weakness or sensory changes. [] Endocrine: Denies polyuria or polydipsia. [] Lymphatic: Denies swollen glands. [] Psychiatric: Denies depression or anxiety. [] Heart Score: C/O Chest Pain: No Risk Factors: Risk Factors: DM, Current or recent (<one month) smoker, HTN, HLP, family history of CAD, obesity. Risk Scores: Score 0 - 3: 2.5% MACE over next 6 weeks - Discharge Home Score 4 - 6: 20.3% MACE over next 6 weeks - Admit for Clinical Observation Score 7 - 10: 72.7% MACE over next 6 weeks - Early Invasive Strategies Allergies: Allergies: Allergies Coded Allergies Type Severity Reaction Last Updated Verified No Known Drug Allergies 03/14/18 No Physical Exam: PE: Constitutional: Ill-appearing, vomiting HENT: Normocephalic, atraumatic, bilateral external ears normal, oropharynx moist, no oral exudates, nose normal. [] Eyes: PERRLA, EOMI, conjunctiva normal, no discharge. [] Neck: Normal range of motion, no tenderness, supple, no stridor. [] Cardiovascular: Tachycardic, no murmur [] Lungs & Thorax: Bilateral breath sounds clear to auscultation [] Abdomen: Bowel sounds normal, soft, no tenderness, no masses, no pulsatile masses. [] Skin: Pale, poor turgor Back: No tenderness, no CVA tenderness. [] Extremities: No tenderness, no cyanosis, no clubbing, ROM intact, no edema. [] Neurologic: Alert and oriented X 3, normal motor function, normal sensory function, no focal deficits noted. [] Psychologic: Affect normal, judgement normal, mood normal. [] Current Patient Data: Vital Signs: Vital Signs Date Time Temp Pulse Resp B/P (MAP) Pulse Ox O2 Delivery O2 Flow Rate FiO2 01/10/22 21:54 98.2 118 20 126/82 (97) 100 Room Air 98.2 EKG: EKG: [] Patient has EKG with a normal sinus rhythm with a heart rate of 98 a QTC of 423 and IL interval 156. Patient has a leftward axis. No ischemic changes Radiology/Procedures: Radiology/Procedures: [] Exam: Chest one view INDICATION: Altered mental status TECHNIQUE: Frontal view of the chest Comparisons: None FINDINGS: The cardiomediastinal silhouette and pulmonary vessels are within normal limits. Bandlike opacities at lung bases bilaterally. No pleural effusion. IMPRESSION: Bibasilar airspace disease may relate to atelectasis or developing consolidative process. Course & Med Decision Making: Course & Med Decision Making Pertinent Labs and Imaging studies reviewed. (See chart for details) [] Discussed with Dr. Tate. Fluids and antibiotics started. Consult for urology placed Critical care time 32 min Ana Disclaimer: Ana Disclaimer: This electronic medical record was generated, in whole or in part, using a voice recognition dictation system. Date and Time of Assessment Date: Jan 10, 2022 Time: 23:00 Vital Signs Vital Signs: Vital Signs Date Time Temp Pulse Resp B/P (MAP) Pulse Ox O2 Delivery O2 Flow Rate FiO2 01/10/22 21:54 98.2 118 20 126/82 (97) 100 Room Air 98.2 Temperature Source: Oral Respirations Respiratory Effort: Non-Labored, Labored Respiratory Pattern: Normal Cardiovascular Pulse Rhythm: Regular Heart: Nml rate, reg. rhythm Lung Sounds Breath Sounds: Clear Capillary Refil Capillary Refill: Lt Hand < 3 seconds Peripheral Pulse Pulse Location: Monitor Pulse Strength: Normal (2+) Pulse Assessment Method: NIBP Integumentary Skin: Warm Skin Moisture: Dry Skin Turgor: Decreased Skin Color: warm Fingernail Color: WNL Departure Departure Impression: Primary Impression: Acute renal failure Additional Impressions: Sepsis Hyponatremia Disposition: ADMITTED INPATIENT Condition: STABLE Referrals: MAU RUTH MD (PCP) AGUSTIN MARTINEZ DO Jan 10, 2022 22:31
--- NOTE | 2022-01-10 22:46 | RAD ---
Exam: Chest one view INDICATION: Altered mental status TECHNIQUE: Frontal view of the chest Comparisons: None FINDINGS: The cardiomediastinal silhouette and pulmonary vessels are within normal limits. Bandlike opacities at lung bases bilaterally. No pleural effusion. IMPRESSION: Bibasilar airspace disease may relate to atelectasis or developing consolidative process. Electronically signed by: Blair Mata MD (01/10/2022 10:43 PM) MART[facility]N
[2022-01-10 22:56] LABS: BASO % 0 % (0-3); EOS # 0.2 x10^3/uL (0.0-0.7); EOS % 1 % (0-3); HEMATOCRIT 35.1 % (36.0-47.0); HEMOGLOBIN 11.8 g/dL (12.0-15.5); LYMPH # 0.6 x10^3/uL (1.0-4.8); LYMPH % 4 % (24-48); MEAN CORPUSCULAR HEMOGLOBIN 30 pg (25-35); MEAN CORPUSCULAR HGB CONC 34 g/dL (31-37); MEAN CORPUSCULAR VOLUME 90 fL (79-100); MONO # 0.4 x10^3/uL (0.0-1.1); MONO % 3 % (0-9); NEUT # 12.7 x10^3/uL (1.8-7.7); NEUT % 91 % (31-73); PLATELET COUNT 177 x10^3/uL (140-400); RED BLOOD COUNT 3.91 x10^6/uL (3.50-5.40); RED CELL DISTRIBUTION WIDTH 14.6 % (11.5-14.5); WHITE BLOOD COUNT 13.9 x10^3/uL (4.0-11.0)
[2022-01-10 23:08] LABS: CALCIUM 7.9 mg/dL (8.5-10.1); CREATININE 6.7 mg/dL (0.6-1.0); GFR 6.5; POTASSIUM 4.5 mmol/L (3.5-5.1)
[2022-01-10 23:15] LABS: ALBUMIN 2.6 g/dL (3.4-5.0); ALBUMIN/GLOBULIN RATIO 0.7 (1.0-1.7); TOTAL BILIRUBIN 0.7 mg/dL (0.2-1.0); TOTAL PROTEIN 6.5 g/dL (6.4-8.2)
[2022-01-10] MEDS ORDERED: VANCOMYCIN PER PHARMACY MC PRN (23:15)
[2022-01-10 23:24] LABS: % BANDS 16 % (0-9); % LYMPHS 9 % (24-48); % MONOS 2 % (0-10); % SEGS 73 % (35-66); PLT ESTIMATE ADEQUATE (ADEQUATE); TOXIC GRANULATION MOD; TOXIC VACUOLATION MOD
[2022-01-10] MEDS ORDERED: PIPERACILLIN/TAZOBACTAM 4.5 GM in IV DEXTROSE 5% 100ML 100 ML IV ONE (23:30)
--- NOTE | 2022-01-10 23:42 | RAD ---
CT Head W/O Contrast: History: Reason: AMS / Spl. Instructions: / History: Comparison: none Axial images were obtained without contrast. The lopez and white matter appears normal and symmetrical for the patients age. There is no mass effe ct, extraaxial fluid collections or hydrocephalus. There is no gross bleed. There is no focal loss of lopez-white matter distinction to suggest acute ischemia, i.e. stroke. Impression: No acute findings. RS Compliance Statement: One or more of the following individualized dose reduction techniques were utilized for this examinat ion: 1. Automated exposure control 2. Adjustment of the mA and/or kV according to patient size 3. Use of iterative reconstruction technique Electronically signed by: Armando Mora III, MD (01/10/2022 11:40 PM) [facility]
[2022-01-11] MEDS ORDERED: VANCOMYCIN 2 GM in IV NORMAL SALINE 500ML BAG 500 ML IV ONE
--- NOTE | 2022-01-11 00:44 | EKG ---
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
--- NOTE | 2022-01-11 01:41 | RAD ---
EXAM: RENAL ULTRASOUND CLINICAL HISTORY: Acute renal failure. COMPARISON: None. TECHNIQUE: Ultrasound examination of the bilateral kidneys and urinary bladder was performed. FINDINGS: The right kidney measures 13.4 cm longitudinal and the left kidney 13.6 cm. Cortical thickness and echogenicity is within normal limits on the right and left. No hydronephrosis. Very small focus of hypoechogenicity along the periphery of the right kidney measuring up to 1.1 cm most likely represents a cyst. No complex cyst or mass on the right or left that would warrant dedica barbara follow-up. Unremarkable bladder. IMPRESSION: Nonspecific mild prominence of both kidneys. Cortical thickness and echogenicity is within normal jones its and there is no hydronephrosis. Electronically signed by: EVARISTO NEVES MD (01/11/2022 1:39 AM) [facility]
--- NOTE | 2022-01-11 03:03 | NUR ---
Pharmacy Vancomycin Dosing Note S:Consulted to monitor and dose vancomycin started 01/11/22. O:APPL,JOSE Sanders is a 51 year old F with Sepsis . Height: 5 feet, 9 inches Weight: 86.0 kg [place] Body Weight: 66.20 Adjusted Body Weight: 74.12 Dosing Weight: Actual Other Antibiotics: ZOSYN 4.5GM X1 LABS: Last BUN: 64 Last Creatinine: 6.7 Creatinine Clearance: 11.5 mL/min Last WBC: 13.9 Last Procalcitonin: Tmax (past 24 hours): Microbiology: I/O: Drug Levels: Last level: on at Last dose given 01/11/22 at 0000 Vancomycin Dosing: Loading Dose: 2000 mg x1 Dosing Weight: Actual Target Trough: 15-20 A: Based on: WT AND RENAL FUNCTION P: 1. Begin Vancomycin IV Dose Per Levels 2. Follow up Random level on 01/12/22 at 2300 3. Pharmacy will continue to monitor, follow and adjust therapy as needed. BHASKAR CARRILLO RPH, 01/11/22 0303 Signed: 01/11/22 at 0304 by BHASKAR CARRILLO RPH PHA
[2022-01-11 03:20] VITALS: BP 106/59
[2022-01-11] MEDS ORDERED: DOCU250C8 PO (04:18)
[2022-01-11] MEDS ORDERED: FERR325T14 PO (04:20)
[2022-01-11] MEDS ORDERED: TIZA-75 PO (04:21)
[2022-01-11] MEDS ORDERED: GABA300C18 PO (04:21)
[2022-01-11] MEDS ORDERED: CLOB15OI TP (04:22)
[2022-01-11] MEDS ORDERED: LIDO700A21 TP (04:23)
[2022-01-11] MEDS ORDERED: NAPR-634 PO (04:25)
[2022-01-11] MEDS: ONDANSETRON PF 4 MG/2 ML VIAL. IVP PRN (05:02)
[2022-01-11 06:05] LABS: BASO % 0 % (0-3); EOS # 0.2 x10^3/uL (0.0-0.7); EOS % 2 % (0-3); HEMATOCRIT 32.5 % (36.0-47.0); HEMOGLOBIN 11.2 g/dL (12.0-15.5); LYMPH # 0.5 x10^3/uL (1.0-4.8); LYMPH % 4 % (24-48); MEAN CORPUSCULAR HEMOGLOBIN 31 pg (25-35); MEAN CORPUSCULAR HGB CONC 34 g/dL (31-37); MEAN CORPUSCULAR VOLUME 89 fL (79-100); MONO # 0.5 x10^3/uL (0.0-1.1); MONO % 4 % (0-9); NEUT # 10.5 x10^3/uL (1.8-7.7); NEUT % 90 % (31-73); PLATELET COUNT 156 x10^3/uL (140-400); RED BLOOD COUNT 3.65 x10^6/uL (3.50-5.40); RED CELL DISTRIBUTION WIDTH 14.8 % (11.5-14.5); WHITE BLOOD COUNT 11.7 x10^3/uL (4.0-11.0)
[2022-01-11 07:00] VITALS: BP 136/87
[2022-01-11 07:26] LABS: ALBUMIN 2.3 g/dL (3.4-5.0); ALBUMIN/GLOBULIN RATIO 0.5 (1.0-1.7); CALCIUM 8.3 mg/dL (8.5-10.1); CREATININE 6.5 mg/dL (0.6-1.0); GFR 6.7; POTASSIUM 4.1 mmol/L (3.5-5.1); TOTAL BILIRUBIN 0.8 mg/dL (0.2-1.0); TOTAL PROTEIN 7.1 g/dL (6.4-8.2)
--- NOTE | 2022-01-11 09:30 | NUR ---
PT VERY DROWSY, ANSWERS QUESTIONS IN ONLY YES OR NO FASHION. FAMILY AT BEDSIDE.
--- NOTE | 2022-01-11 09:58 | PDOC2 ---
CONSULT Date of Consult Date of Consult DATE: 01/11/22 TIME: 09:58 Reason for Consult Reason for Consult: MIRA Identification/Chief Complaint Chief Complaint Drowsy, lethargic Source Source: Chart review History of Present Illness Reason for Visit: Patient is a 51 year old CF presents to the ER with multiple falls, generalized weakness and altered mental status. Family states that has been ongoing progressively for the last 4 weeks. Denies any fevers or chills. Reports nausea vomiting in the ER, reports no vomiting but decreased p.o. intake. Patient was seen by a pain management doctor at for her epidural shots for chronic low back pain when she was found to be with a low blood pressure and tachycardia and was sent to the ER for evaluation. She was started on Muscle relaxant recently by pain management . Denies CP or SOB. No F/C, Denies Abdominal pain. Denies Urinary complaints, No Dysuria, reports good , normal UOP , denies gross hematuria . She takes Aleve 1-2 /day nearly every day .Denies LE edema States feeling very thirsty She was seen by Dr Song of our group in 2012- Pt and dont recall any thing On reviewing the office note- she had Kidney Bx for dipstick positive hematuria and Proteinuria , Dx with Thin basement membrane disease. Pt and not recall having a Bx and did not follow up - was advised to follow in 5-6 weeks History Obtained from Past Medical History Past Medical History HTN, Chronic back pain GERD, depression, anxiety. PA Past Surgical History Past Surgical History Remarkable for prior melanoma removal, ,hysterectomy, tubal ligation, bilateral breast augmentations. Family History Family History Positive for breast cancer in the mother, COPD in her father. Social History Social History Nonsmoker, nondrinker, does not use drugs. , lives at home with her and children. \ Drugs: None Lives: with Family Current Problem List Problem List Problems Medical Problems: (1) Acute renal failure Status: Acute (2) Hyponatremia Status: Acute (3) Sepsis Status: Acute Current Medications Current Medications Current Medications Piperacillin Sod/ Tazobactam Sod 4.5 gm/Dextrose 100 ml @ 200 mls/hr 1X ONCE IV Last administered on 01/10/22at 23:30; Start 01/10/22 at 23:30; Stop 01/10/22 at 23:59; Status DC Vancomycin HCl (Vanco Per Pharmacy) 1 each PRN DAILY PRN MC SEE COMMENTS Last administered on 01/11/22at 03:01; Start 01/10/22 at 23:15 Vancomycin HCl 2 gm/Sodium Chloride 500 ml @ 250 mls/hr 1X ONCE IV Last administered on 01/11/22at 00:00; Start 01/11/22 at 00:00; Stop 01/11/22 at 01:59; Status DC Vancomycin HCl (Vancomycin Random Level) 1 each 1X ONCE MC ; Start 01/12/22 at 23:00; Stop 01/12/22 at 23:01 Ondansetron HCl (Zofran) 4 mg PRN Q6HRS PRN IVP NAUSEA/VOMITING 1ST CHOICE Last administered on 01/11/22at 05:02; Start 01/11/22 at 04:45 Active Scripts Active Reported Naproxen Sodium 220 Mg Tablet 220 Mg PO BID PRN Lidocaine PATCH (Lidocaine) 1 Each Adh..patch 1 Each TP DAILY PRN REMOVE AFTER 12 HOURS Clobetasol Propionate 15 Gm Oint...g. 1 Anabel TP BID Tizanidine Hcl 4 Mg Tablet 4 Mg PO TID PRN Gabapentin (Gabapentin) 300 Mg Capsule 300 Mg PO TID Ferrous Sulfate 325 Mg Tablet 325 Mg PO DAILY Docusate Sodium 250 Mg Capsule 250 Mg PO BID Acetaminophen 500 Mg Tablet 1 Tab PO PRN Q6HRS PRN 15 Days Ibuprofen 400 Mg Tablet 800 Mg PO PRN Q8HRS PRN Allopurinol 300 Mg Tablet 1 Tab PO DAILY Vitamin D (Cholecalciferol (Vitamin D3)) 2,000 Unit Capsule 1 Cap PO DAILY Requip (Ropinirole Hcl) 0.5 Mg Tablet 0.25 Mg PO HS Cymbalta (Duloxetine Hcl) 60 Mg Capsule. 1 Cap PO DAILY Miralax (Polyethylene Glycol 3350) 17 Gm Powd.pack 1 Packet PO BID Bystolic (Nebivolol) 10 Mg Tablet 20 Mg PO DAILY Amitriptyline Hcl 50 Mg Tablet 1 Tab PO QHS Omeprazole 20 Mg Capsule.dr 20 Mg PO DAILY Allergies Allergies: Coded Allergies: No Known Drug Allergies (Unverified , 03/14/18) ROS Review of System As per HPI, rest of the ROS is negative Physical Exam Physical Exam General- NAD, drowsy HEEN OM Dry, Anicteric Neck Supple Lungs CTA, Non labored CV S1S2 , No rub Ext No LE edema No bautista, No CVA or SP tenderness Abd Soft, nt Neuro Grossly normal, moving al extrem. went up to the BR Psych Drowsy Vital Signs Vital Signs Date Time Temp Pulse Resp B/P (MAP) Pulse Ox O2 Delivery O2 Flow Rate FiO2 01/11/22 03:20 98.3 110 18 106/59 (75) 91 Nasal Cannula 4.0 98.3 Assessment & Plan MIRA - ATN suspect 2/2 Severe Dehydration/NSAID/Sepsis . Per Cr 0.7 at [facility] on 12/26 . Baseline Cr at [facility] 1.1 in 2019 . E-Lytes stable. US unremarkable. Check UA (Not done in ER in patient with MIRA ) . IV NS (not getting any IVF) , Strict I/O, place Bautista . Avoid Nephrotoxinss. She Recd Vancomycin Pt's told by primary that she will need dialysis today and she is currently NPO . . Currently No emergent indication for dialysis . Re-evaluate HypoNatremia- suspect 2/2 dehydration . Did not receive any IVF since presentation . Hx of micr hematuria- S/P renal Bx on review of records from our office -, in 2- 13 Dx with thin base,ent membrane disease . Recommended fu in 5-6 weeks. Patient dotty not follow up with Nephrology since AMS 2/2 Sepsis/Rule Out UTI.I have ordered UA . Defer to primary HTN- Hx of uncontrolled HTN in the past ( 2012). Discussed at great length with at bedside and RN Labs Labs Laboratory Tests Test 01/10/22 22:41 01/11/22 05:35 White Blood Count 13.9 x10^3/uL (4.0-11.0) 11.7 x10^3/uL (4.0-11.0) Red Blood Count 3.91 x10^6/uL (3.50-5.40) 3.65 x10^6/uL (3.50-5.40) Hemoglobin 11.8 g/dL (12.0-15.5) 11.2 g/dL (12.0-15.5) Hematocrit 35.1 % (36.0-47.0) 32.5 % (36.0-47.0) Mean Corpuscular Volume 90 fL (79-100) 89 fL (79-100) Mean Corpuscular Hemoglobin 30 pg (25-35) 31 pg (25-35) Mean Corpuscular Hemoglobin Concent 34 g/dL (31-37) 34 g/dL (31-37) Red Cell Distribution Width 14.6 % (11.5-14.5) 14.8 % (11.5-14.5) Platelet Count 177 x10^3/uL (140-400) 156 x10^3/uL (140-400) Neutrophils (%) (Auto) 91 % (31-73) 90 % (31-73) Lymphocytes (%) (Auto) 4 % (24-48) 4 % (24-48) Monocytes (%) (Auto) 3 % (0-9) 4 % (0-9) Eosinophils (%) (Auto) 1 % (0-3) 2 % (0-3) Basophils (%) (Auto) 0 % (0-3) 0 % (0-3) Neutrophils # (Auto) 12.7 x10^3/uL (1.8-7.7) 10.5 x10^3/uL (1.8-7.7) Lymphocytes # (Auto) 0.6 x10^3/uL (1.0-4.8) 0.5 x10^3/uL (1.0-4.8) Monocytes # (Auto) 0.4 x10^3/uL (0.0-1.1) 0.5 x10^3/uL (0.0-1.1) Eosinophils # (Auto) 0.2 x10^3/uL (0.0-0.7) 0.2 x10^3/uL (0.0-0.7) Basophils # (Auto) 0.0 x10^3/uL (0.0-0.2) 0.0 x10^3/uL (0.0-0.2) Segmented Neutrophils % 73 % (35-66) Band Neutrophils % 16 % (0-9) Lymphocytes % 9 % (24-48) Monocytes % 2 % (0-10) Toxic Granulation Mod Toxic Vacuolation Mod Platelet Estimate Adequate (ADEQUATE) Sodium Level 127 mmol/L (136-145) 127 mmol/L (136-145) Potassium Level 4.5 mmol/L (3.5-5.1) 4.1 mmol/L (3.5-5.1) Chloride Level 89 mmol/L (98-107) 91 mmol/L (98-107) Carbon Dioxide Level 20 mmol/L (21-32) 20 mmol/L (21-32) Anion Gap 18 (6-14) 16 (6-14) Blood Urea Nitrogen 64 mg/dL (7-20) 68 mg/dL (7-20) Creatinine 6.7 mg/dL (0.6-1.0) 6.5 mg/dL (0.6-1.0) Estimated GFR (Cockcroft-Gault) 6.5 6.7 BUN/Creatinine Ratio 10 (6-20) 10 (6-20) Glucose Level 215 mg/dL (70-99) 164 mg/dL (70-99) Lactic Acid Level 2.0 mmol/L (0.4-2.0) Calcium Level 7.9 mg/dL (8.5-10.1) 8.3 mg/dL (8.5-10.1) Total Bilirubin 0.7 mg/dL (0.2-1.0) 0.8 mg/dL (0.2-1.0) Aspartate Amino Transf (AST/SGOT) 81 U/L (15-37) 58 U/L (15-37) Alanine Aminotransferase (ALT/SGPT) 62 U/L (14-59) 54 U/L (14-59) Alkaline Phosphatase 167 U/L (46-116) 148 U/L (46-116) Ammonia < 10 mcmol/L (11-34) Total Protein 6.5 g/dL (6.4-8.2) 7.1 g/dL (6.4-8.2) Albumin 2.6 g/dL (3.4-5.0) 2.3 g/dL (3.4-5.0) Albumin/Globulin Ratio 0.7 (1.0-1.7) 0.5 (1.0-1.7) SARS-CoV-2 Antigen (Rapid) Negative (NEGATIVE) Laboratory Tests Test 01/10/22 22:41 01/11/22 05:35 White Blood Count 13.9 x10^3/uL (4.0-11.0) 11.7 x10^3/uL (4.0-11.0) Red Blood Count 3.91 x10^6/uL (3.50-5.40) 3.65 x10^6/uL (3.50-5.40) Hemoglobin 11.8 g/dL (12.0-15.5) 11.2 g/dL (12.0-15.5) Hematocrit 35.1 % (36.0-47.0) 32.5 % (36.0-47.0) Mean Corpuscular Volume 90 fL (79-100) 89 fL (79-100) Mean Corpuscular Hemoglobin 30 pg (25-35) 31 pg (25-35) Mean Corpuscular Hemoglobin Concent 34 g/dL (31-37) 34 g/dL (31-37) Red Cell Distribution Width 14.6 % (11.5-14.5) 14.8 % (11.5-14.5) Platelet Count 177 x10^3/uL (140-400) 156 x10^3/uL (140-400) Neutrophils (%) (Auto) 91 % (31-73) 90 % (31-73) Lymphocytes (%) (Auto) 4 % (24-48) 4 % (24-48) Monocytes (%) (Auto) 3 % (0-9) 4 % (0-9) Eosinophils (%) (Auto) 1 % (0-3) 2 % (0-3) Basophils (%) (Auto) 0 % (0-3) 0 % (0-3) Neutrophils # (Auto) 12.7 x10^3/uL (1.8-7.7) 10.5 x10^3/uL (1.8-7.7) Lymphocytes # (Auto) 0.6 x10^3/uL (1.0-4.8) 0.5 x10^3/uL (1.0-4.8) Monocytes # (Auto) 0.4 x10^3/uL (0.0-1.1) 0.5 x10^3/uL (0.0-1.1) Eosinophils # (Auto) 0.2 x10^3/uL (0.0-0.7) 0.2 x10^3/uL (0.0-0.7) Basophils # (Auto) 0.0 x10^3/uL (0.0-0.2) 0.0 x10^3/uL (0.0-0.2) Segmented Neutrophils % 73 % (35-66) Band Neutrophils % 16 % (0-9) Lymphocytes % 9 % (24-48) Monocytes % 2 % (0-10) Toxic Granulation Mod Toxic Vacuolation Mod Platelet Estimate Adequate (ADEQUATE) Sodium Level 127 mmol/L (136-145) 127 mmol/L (136-145) Potassium Level 4.5 mmol/L (3.5-5.1) 4.1 mmol/L (3.5-5.1) Chloride Level 89 mmol/L (98-107) 91 mmol/L (98-107) Carbon Dioxide Level 20 mmol/L (21-32) 20 mmol/L (21-32) Anion Gap 18 (6-14) 16 (6-14) Blood Urea Nitrogen 64 mg/dL (7-20) 68 mg/dL (7-20) Creatinine 6.7 mg/dL (0.6-1.0) 6.5 mg/dL (0.6-1.0) Estimated GFR (Cockcroft-Gault) 6.5 6.7 BUN/Creatinine Ratio 10 (6-20) 10 (6-20) Glucose Level 215 mg/dL (70-99) 164 mg/dL (70-99) Lactic Acid Level 2.0 mmol/L (0.4-2.0) Calcium Level 7.9 mg/dL (8.5-10.1) 8.3 mg/dL (8.5-10.1) Total Bilirubin 0.7 mg/dL (0.2-1.0) 0.8 mg/dL (0.2-1.0) Aspartate Amino Transf (AST/SGOT) 81 U/L (15-37) 58 U/L (15-37) Alanine Aminotransferase (ALT/SGPT) 62 U/L (14-59) 54 U/L (14-59) Alkaline Phosphatase 167 U/L (46-116) 148 U/L (46-116) Ammonia < 10 mcmol/L (11-34) Total Protein 6.5 g/dL (6.4-8.2) 7.1 g/dL (6.4-8.2) Albumin 2.6 g/dL (3.4-5.0) 2.3 g/dL (3.4-5.0) Albumin/Globulin Ratio 0.7 (1.0-1.7) 0.5 (1.0-1.7) SARS-CoV-2 Antigen (Rapid) Negative (NEGATIVE) Review All relevant outside records, renal labs, imaging studies, telemetry/EKG's were reviewed. Images Images EXAM: RENAL ULTRASOUND CLINICAL HISTORY: Acute renal failure. COMPARISON: None. TECHNIQUE: Ultrasound examination of the bilateral kidneys and urinary bladder was performed. FINDINGS: The right kidney measures 13.4 cm longitudinal and the left kidney 13.6 cm. Cortical thickness and echogenicity is within normal limits on the right and left. No hydronephrosis. Very small focus of hypoechogenicity along the periphery of the right kidney measuring up to 1.1 cm most likely represents a cyst. No complex cyst or mass on the right or left that would warrant dedicated follow-up. Unremarkable bladder. IMPRESSION: Nonspecific mild prominence of both kidneys. Cortical thickness and echogenicity is within normal limits and there is no hydronephrosis. REJI MARS MD Jan 11, 2022 09:58
[2022-01-11 11:00] VITALS: BP 141/84
[2022-01-11 11:08] LABS: BARBITURATES NEG (NEG); BENZODIAZEPINES NEG (NEG); CANNABINOIDS NEG (NEG); COCAINE NEG (NEG); METHADONE NEG (NEG); OPIATES POS (NEG); PHENCYCLIDINE NEG (NEG)
[2022-01-11 11:15] LABS: WBC,URINE >40 /HPF (0-4)
[2022-01-11 11:16] LABS: BACTERIA,URINE MANY /HPF (0-FEW); RBC,URINE FIELD OBSCURED /HPF (0-2)
[2022-01-11 11:23] LABS: AMPHETAMINE/METHAMPHETAMINE NEG (NEG)
--- NOTE | 2022-01-11 13:01 | NUR ---
SS following for discharge planning. SS reviewed pt chart and discussed with pt RN. Pt is from home with spouse and is currently requiring oxygen at four liters nasal canula. Nephrology following. COVID19 negative. SS will continue to follow for discharge planning.
--- NOTE | 2022-01-11 14:25 | RAD ---
CT scan of the chest abdomen and pelvis without contrast 01/11/2022 CLINICAL HISTORY: Prominence of both kidneys seen on recent renal ultrasound. Pyelonephritis. Renal f ailure. Bibasilar airspace disease seen on chest radiograph. TECHNIQUE: Unenhanced contiguous, 5 mm axial sections were obtained through the chest, abdomen and pe lvis. FINDINGS: Comparison is made to patient's renal ultrasound dated 01/11/2022. Additional comparison is made to patient's portable chest radiograph dated 01/10/2022. Surgical clips are seen within the left axilla. Bilateral breast implants are seen. The thoracic aort a is mildly tortuous but tapers normally. There is mild cardiomegaly. Small calcified hilar mediastin al lymph nodes are noted. Bilateral lower lobe atelectasis and/or infiltrate is noted. Subsegmental atelectasis is seen involvi ng the lingula. No pneumothorax or pleural effusion is seen. The liver parenchyma has a decreased attenuation consistent with fatty infiltration. The liver is mil dly enlarged measuring 20.9 cm in length. The spleen pancreas and adrenal glands are within normal li mits. There is suggestion of edema and swelling involving both kidneys consistent with the patient's histor y of pyelonephritis. No abnormal fluid collection is seen. There is no evidence of obstruction of eit her collecting system. Mild atherosclerotic calcification abdominal aorta is seen. The abdominal aorta tapers normally. Surg ical clips are seen involving the stomach. Surgical clips are seen within the gallbladder fossa consi stent with cholecystectomy. No free fluid or free air is seen within the abdomen. There is no evidenc e of bowel obstruction. Images through the pelvis demonstrate the urinary bladder distended with urine. Calcifications are se en within the pelvis consistent with phleboliths. There appear to be small calcified fibroids involvi ng the uterus. No adnexal mass is seen. No free fluid is noted. Mild to moderate S-shaped curvature of the thoracolumbar spine is seen. Patient is post fusion at L4- 5 using pedicle screws, stabilizing rods and bone graft material. Surgical clips are seen within the left inguinal region. IMPRESSION: 1. Bilateral lower lobe atelectasis and/or infiltrate. 2. Findings are seen consistent with patient's history of pyelonephritis as discussed above. No absce ss is seen. Electronically signed by: Sameer Perdue MD (01/11/2022 2:23 PM) [id number]
[2022-01-11 15:00] VITALS: BP 107/64
[2022-01-11] MEDS: PIPERACILLIN/TAZOBACTAM 2.25 GM in IV NORMAL SALINE 50ML 50 ML IV SCH ×3 (15:07→23:49)
[2022-01-11 15:51] LABS: ALBUMIN 2.2 g/dL (3.4-5.0); CALCIUM 8.5 mg/dL (8.5-10.1); CREATININE 6.3 mg/dL (0.6-1.0); PHOSPHORUS 5.4 mg/dL (2.6-4.7); POTASSIUM 3.9 mmol/L (3.5-5.1)
--- NOTE | 2022-01-11 16:00 | NUR ---
MORE ALERT NOW, STILL DROWSY BUT MAINTAINING LONGER PERIODS OF WAKEFULNESS. STILL SHORT ANSWERS. USING BEDSIDE COMMODE FOR ELIMINATION NEEDS. DECLINED SHARPE CATHETER AT THIS TIME, RESERVES RIGHT TO REQUEST IF URINARY OUTPUT INCREASES.
--- NOTE | 2022-01-11 17:58 | HP ---
DATE OF SERVICE: 01/11/2022 ADMIT DATE: 01/10/2022 ADMISSION HISTORY AND PHYSICAL LOCATION: She is in room 656. CHIEF COMPLAINT AND HISTORY OF PRESENT ILLNESS: This is a 51-year-old female who has been having altered and worsening mental status over the last two to three days. She then was seen on day of admission at [facility] with hypotension and tachycardia and told that she needed to go home and push fluids as she was likely dehydrated. I spoke with them later in the day on the evening of admission and asked them to please take her to the Emergency Room as this was quite out of character for her. She was thus sent to the Emergency Room where she was found to be in acute renal failure with normal imaging of her kidneys. CT head normal. Chest x-ray is pretty much normal. She, however, had acute hypoxic respiratory failure requiring oxygen, had a leukocytosis and was admitted to the floor on IV vancomycin and Zosyn by the Emergency Room. She did have a CT with IV contrast a couple of weeks prior to this, making it somewhat of a culprit, although she does not have diabetes and does not take metformin. PAST MEDICAL HISTORY: Remarkable for sleeve gastrectomy, bilateral breast augmentation, and prior melanoma. MEDICATIONS: Brought with the patient, listed on computer, have been addressed. ALLERGIES: She has no known drug allergies. SOCIAL HISTORY: She is a lifetime nonsmoker, does not drink or use drugs. FAMILY HISTORY: Noncontributory. REVIEW OF SYSTEMS: Unobtainable due to her altered mental status. PHYSICAL EXAMINATION: GENERAL: She is well-developed, well-nourished female who appears obtunded. VITAL SIGNS: Stable. She is afebrile. HEAD, EYES, EARS, NOSE AND THROAT: Unremarkable. NECK: Supple, without adenopathy or thyromegaly. CHEST: Clear to auscultation. HEART: Regular rate and rhythm without S3, S4 or murmur. ABDOMEN: Soft, nontender, without hepatosplenomegaly or mass. EXTREMITIES: Without cyanosis, clubbing or significant edema. NEUROLOGIC: Remarkable for the obtundation. LABORATORY DATA: White count this morning has gone down to 11,700 from admission of 39. Sodium remains low at 127, BUN at 68, creatinine 6.5. She is COVID negative and urine was obtained after Renal consult shown evidence of urinary tract infection and I believe during the night with discussion with the ER, they told me that this was okay, but I could be wrong; however, she now has 3 positive blood cultures for gram-negative rods. ASSESSMENT: Acute renal failure due to sepsis with bacteremia, likely due to urinary tract infection and hyponatremia. PLAN: IV antibiotics, hydration. Renal help appreciated. Observe and monitor closely. GOLDEN/MELVIN/ZHANG DR: Mirella TID: [id number]
[2022-01-11 19:00] VITALS: BP 135/90
--- NOTE | 2022-01-11 22:03 | CONS ---
DATE OF CONSULTATION: 01/11/2022 REQUESTING PHYSICIAN: Gideon Lamas MD REASON FOR CONSULTATION: Gram-negative sorin bacteremia. HISTORY OF PRESENT ILLNESS: This is a 51-year-old female with history of hypertension with no known kidney problem. The patient presented with 1-week history of not feeling well, multiple falls, even some altered mental status. The patient denied any nausea, vomiting or diarrhea. Denied any urinary problems. Denied any fever or chills. The patient in fact was seen by pain management at for epidural injection for back pain and at that time, she was found to be tachycardic and low blood pressure. Hence, she was asked to go to the ER. The patient was found to have acute kidney injury with a creatinine 6.7, which had been at least a year documented in 2019 was normal. White count was 13.9. Urinalysis showed more than 40 wbc's, nitrite positive, leukocyte positive, large. Blood culture showing gram-negative sorin. The patient had ultrasound kidney done, which shows nonspecific mild prominence of both kidneys, no hydronephrosis. Head CT was done, which was unremarkable. Chest x-ray, bibasilar airspace disease. The patient has received one dose of vancomycin and one dose of Zosyn. The patient is alert, a bit confused, at least she is having difficulty responding quickly, not in any distress. PAST MEDICAL HISTORY: Positive for hypertension, gastroesophageal reflux disease. She has had lumpectomy done, breast implant, hysterectomy, back surgery, anxiety disorder, skin cancer. SOCIAL HISTORY: Negative for smoking, alcohol or illicit drug use. ALLERGIES: No known drug allergies. CURRENT MEDICATIONS: Reviewed. REVIEW OF SYSTEMS: As in HPI. All other systems reviewed are negative. PHYSICAL EXAMINATION: GENERAL: Alert, oriented female, not in any distress. VITAL SIGNS: Temperature 97.6, pulse 84, respirations 24, blood pressure 141/84. HEENT: Both pupils are round and reacting. No conjunctival lesion. No lesion in the mouth. NECK: Supple, no JVP, no lymphadenopathy. LUNGS: Clear. HEART: S1, S2, regular. ABDOMEN: Soft, nontender, no organomegaly. EXTREMITIES: No edema or cyanosis. SKIN: Unremarkable. NEUROLOGIC: The patient is a bit slow, but able to communicate and answer all the questions appropriately. No focal deficit. LABORATORY DATA: White count is 11.7, platelets are normal. BUN and creatinine is 68 and 6.5. Urinalysis as I mentioned earlier and the blood culture. IMPRESSION: 1. Gram-negative sorin bacteremia. It is unclear. It might be from the kidney, but identification is pending. 2. Acute kidney injury. Etiology for acute kidney injury is unclear. 3. Hypertension. 4. Encephalopathy. 5. Abnormal urinalysis, it could be infection or could be acute kidney injury. RECOMMENDATIONS: We will continue Zosyn. No need for vancomycin. Supportive care. We will get CT chest, abdomen and pelvis. Repeat blood cultures and we will continue to follow. Thank you very much, Dr. Lamas for giving me opportunity to participate in this patient's care. DEMARIO DR: Oskar TID: [id number]
[2022-01-11] MEDS: IV NORMAL SALINE 1000ML BAG 1,000 ML IV PRN (22:18)
[2022-01-11 22:40] VITALS: BP 128/83
--- NOTE | 2022-01-11 23:00 | NUR ---
PT IS MOANING AND GROANING WITH BACK PAIN SPOKE TO DR RUTH ABOUT BACK PAIN AND BEING NPO. SEE ORDER. LCRN
[2022-01-12] MEDS: ONDANSETRON PF 4 MG/2 ML VIAL. IVP PRN (00:12)
[2022-01-12] MEDS: ACETAMINOPHEN 325 MG SUPP.RECT. PR PRN ×2 (00:12→17:40)
[2022-01-12 02:35] VITALS: BP 134/87
[2022-01-12] MEDS: PIPERACILLIN/TAZOBACTAM 2.25 GM in IV NORMAL SALINE 50ML 50 ML IV SCH ×3 (06:00→17:32)
[2022-01-12 07:00] VITALS: BP 120/78
[2022-01-12 09:01] LABS: ALBUMIN 2.2 g/dL (3.4-5.0); ALBUMIN/GLOBULIN RATIO 0.6 (1.0-1.7); CALCIUM 8.2 mg/dL (8.5-10.1); CREATININE 5.9 mg/dL (0.6-1.0); GFR 7.5; POTASSIUM 4.2 mmol/L (3.5-5.1); TOTAL BILIRUBIN 0.9 mg/dL (0.2-1.0); TOTAL PROTEIN 5.9 g/dL (6.4-8.2)
--- NOTE | 2022-01-12 09:16 | PDOC ---
DATE OF SERVICE DATE: 01/12/22 TIME: 09:12 SUBJECTIVE ROS Alert and sitting up today States feeling much better . No urinary complaints , reports good uop OBJECTIVE Vital Signs Vital Signs Date Time Temp Pulse Resp B/P (MAP) Pulse Ox O2 Delivery O2 Flow Rate FiO2 01/12/22 02:35 98.1 77 16 134/87 (103) 98 Nasal Cannula 2.0 98.1 I & 0 Intake and Output 01/12/22 07:00 Intake Total 1150 ml Output Total 800 ml Balance 350 ml Intake Oral 0 ml IV Total 1150 ml Output Urine Total 800 ml PHYSICAL EXAM Physical Exam General- NAD, sitting up in bed , at bedside HEEN OM Dry, Anicteric Neck Supple Lungs CTA, Non labored CV S1S2 , No rub Ext No LE edema No bautista, No CVA or SP tenderness Abd Soft, nt Neuro Grossly normal, moving al extrem. Psych Stable, cooperative DIAGNOSIS/ASSESSMENT Assessment & Plan MIRA - ATN suspect 2/2 Severe Dehydration/NSAID/Sepsis CT with IV contrast ( didnt mention to me) Per Cr 0.7 at [facility] on 12/26 . Baseline Cr at [facility] 1.1 in 2018 . E-Lytes stable. US unremarkable UA cw UTI , Cx not done, not sure if cancelled by lab IV NS , Bautista ordered qand discused with RN 01/11- Not placed , Strict I/O ? accuracy . Avoid Nephrotoxinss. She Recd Vancomycin . 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 Recommended fu in 5-6 weeks. Patient dotty not follow up with Nephrology since AMS 2/2 Sepsis/Rule Out UTI.I have ordered UA . Defer to primary HTN- Hx of uncontrolled HTN in the past ( 2012). COMMENT/RELEVANT DATA Meds Current Medications Medications (Trade) Dose Ordered Sig/Stanton Start Time Stop Time Status Last Admin Dose Admin Acetaminophen (Tylenol Supp) 650 mg PRN Q4HRS PRN 01/11/22 23:30 01/12/22 00:12 650 MG Ondansetron HCl (Zofran) 4 mg PRN Q6HRS PRN 01/11/22 04:45 01/12/22 00:12 4 MG Piperacillin Sod/ Tazobactam Sod 2.25 gm/Sodium Chloride 50 ml @ 100 mls/hr Q6HRS 01/11/22 14:00 01/12/22 06:00 100 MLS/HR Piperacillin Sod/ Tazobactam Sod 4.5 gm/Dextrose 100 ml @ 200 mls/hr 1X ONCE 01/10/22 23:30 01/10/22 23:59 DC 01/10/22 23:30 200 MLS/HR Sodium Chloride 1,000 ml @ 125 mls/hr CONT PRN 01/11/22 11:30 01/11/22 22:18 125 MLS/HR Vancomycin HCl (Vanco Per Pharmacy) 1 each PRN DAILY PRN 01/10/22 23:15 01/11/22 13:43 DC 01/11/22 03:01 1 EACH Vancomycin HCl (Vancomycin Random Level) 1 each 1X ONCE 01/12/22 23:00 01/11/22 13:43 DC Vancomycin HCl 2 gm/Sodium Chloride 500 ml @ 250 mls/hr 1X ONCE 01/11/22 00:00 01/11/22 01:59 DC 01/11/22 00:00 250 MLS/HR Lab Laboratory Tests Test 01/11/22 10:45 01/11/22 11:00 01/11/22 15:17 01/12/22 03:20 Urine Opiates Screen Pos (NEG) Urine Methadone Screen Neg (NEG) Urine Barbiturates Neg (NEG) Urine Phencyclidine Screen Neg (NEG) Urine Amphetamine/Methamphetamine Neg (NEG) Urine Benzodiazepines Screen Neg (NEG) Urine Cocaine Screen Neg (NEG) Urine Cannabinoids Screen Neg (NEG) Urine Ethyl Alcohol Neg (NEG) Urine Collection Type Unknown Urine Color (Auto) Yellow Urine Turbidity Hazy Urine pH (Auto) 6.0 (<5.0-8.0) Urine Specific [place] 1.015 (1.000-1.030) Urine Protein (Auto) 200 mg/dL (Negative) Urine Glucose (Auto)(UA) Negative mg/dL (Negative) Urine Ketones (Auto) Negative mg/dL (Negative) Urine Blood (Auto) Moderate (Negative) Urine Nitrite (Auto) Positive (Negative) Urine Bilirubin (Auto) Negative (Negative) Urine Urobilinogen (Auto) Normal mg/dL (Normal) Urine Leukocyte Esterase (Auto) Large (Negative) Urine RBC Field obscured /HPF (0-2) Urine WBC >40 /HPF (0-4) Urine Bacteria Many /HPF (0-FEW) Sodium Level 127 mmol/L (136-145) 133 mmol/L (136-145) Potassium Level 3.9 mmol/L (3.5-5.1) 4.2 mmol/L (3.5-5.1) Chloride Level 93 mmol/L (98-107) 97 mmol/L (98-107) Carbon Dioxide Level 19 mmol/L (21-32) 20 mmol/L (21-32) Anion Gap 15 (6-14) 16 (6-14) Blood Urea Nitrogen 77 mg/dL (7-20) 78 mg/dL (7-20) Creatinine 6.3 mg/dL (0.6-1.0) 5.9 mg/dL (0.6-1.0) Estimated GFR (Cockcroft-Gault) 7.0 7.5 Glucose Level 185 mg/dL (70-99) 115 mg/dL (70-99) Calcium Level 8.5 mg/dL (8.5-10.1) 8.2 mg/dL (8.5-10.1) Phosphorus Level 5.4 mg/dL (2.6-4.7) Albumin 2.2 g/dL (3.4-5.0) 2.2 g/dL (3.4-5.0) BUN/Creatinine Ratio 13 (6-20) Total Bilirubin 0.9 mg/dL (0.2-1.0) Aspartate Amino Transf (AST/SGOT) 47 U/L (15-37) Alanine Aminotransferase (ALT/SGPT) 52 U/L (14-59) Alkaline Phosphatase 194 U/L (46-116) Creatine Kinase 308 U/L (26-192) Total Protein 5.9 g/dL (6.4-8.2) Albumin/Globulin Ratio 0.6 (1.0-1.7) Results All relevant outside records, renal labs, imaging studies, telemetry/EKG's were reviewed. Justicifation of Admission Dx: Justifications for Admission: Justification of Admission Dx: Yes Acute Renal Failure: 3-Fold Rise in Serum Crea REJI MARS MD Jan 12, 2022 09:16
--- NOTE | 2022-01-12 09:20 | NUR ---
ALERT ET ORIENTED THIS AM. VERY CHATTY COMPARED TO YESTERDAY'S MENTATION. ABLE TO PARTICIPATE AND ADD MEANINGFULLY TO HEALTH HISTORY AND CARE GOALS. AWAITING RENAL INPUT THIS MORNING ON PROGRESS AND GOALS FOR CARE.
[2022-01-12 11:00] VITALS: BP 140/189
--- NOTE | 2022-01-12 12:21 | PDOC ---
Infectious Disease Note Subjective Subjective pt is feeling better ROS ROS no n/v/d/ Vital Sign Vital Signs Vital Signs Date Time Temp Pulse Resp B/P (MAP) Pulse Ox O2 Delivery O2 Flow Rate FiO2 01/12/22 11:00 97.4 18 140/189 (173) 94 97.4 01/12/22 08:00 Room Air 01/12/22 07:00 18 2.0 Physical Exam PHYSICAL EXAM GENERAL: Alert, oriented female, not in any distress. VITAL SIGNS: stable HEENT: Both pupils are round and reacting. No conjunctival lesion. No lesion in the mouth. NECK: Supple, no JVP, no lymphadenopathy. LUNGS: Clear. HEART: S1, S2, regular. ABDOMEN: Soft, nontender, no organomegaly. EXTREMITIES: No edema or cyanosis. SKIN: Unremarkable. NEUROLOGIC: The patient is a bit slow, but able to communicate and answer all the questions appropriately. No focal deficit. Labs Lab Laboratory Tests Test 01/11/22 15:17 01/12/22 03:20 Sodium Level 127 mmol/L (136-145) 133 mmol/L (136-145) Potassium Level 3.9 mmol/L (3.5-5.1) 4.2 mmol/L (3.5-5.1) Chloride Level 93 mmol/L (98-107) 97 mmol/L (98-107) Carbon Dioxide Level 19 mmol/L (21-32) 20 mmol/L (21-32) Anion Gap 15 (6-14) 16 (6-14) Blood Urea Nitrogen 77 mg/dL (7-20) 78 mg/dL (7-20) Creatinine 6.3 mg/dL (0.6-1.0) 5.9 mg/dL (0.6-1.0) Estimated GFR (Cockcroft-Gault) 7.0 7.5 Glucose Level 185 mg/dL (70-99) 115 mg/dL (70-99) Calcium Level 8.5 mg/dL (8.5-10.1) 8.2 mg/dL (8.5-10.1) Phosphorus Level 5.4 mg/dL (2.6-4.7) Albumin 2.2 g/dL (3.4-5.0) 2.2 g/dL (3.4-5.0) BUN/Creatinine Ratio 13 (6-20) Total Bilirubin 0.9 mg/dL (0.2-1.0) Aspartate Amino Transf (AST/SGOT) 47 U/L (15-37) Alanine Aminotransferase (ALT/SGPT) 52 U/L (14-59) Alkaline Phosphatase 194 U/L (46-116) Creatine Kinase 308 U/L (26-192) Total Protein 5.9 g/dL (6.4-8.2) Albumin/Globulin Ratio 0.6 (1.0-1.7) Micro BC G neg sorin Objective Assessment IMPRESSION: 1. Gram-negative sorin bacteremia. It is unclear. It might be from the kidney, but identification is pending. 2. Acute kidney injury. Etiology for acute kidney injury is unclear. 3. Hypertension. 4. Encephalopathy. 5. Abnormal urinalysis, it could be infection or could be acute kidney injury. Plan Plan of Care Continue antibiotics Identification of organism is pending SAMPSON CALLE MD Jan 12, 2022 12:21
[2022-01-12 15:00] VITALS: BP 151/96
--- NOTE | 2022-01-12 16:34 | NUR ---
SS following up with discharge planning. SS reviewed pt chart and discussed with pt RN. Pt is currently requiring oxygen at two liters nasal canula. COVID19 negative. Pt on IV Zosyn. ID and Nephrology following. Regular diet. SS will continue to follow for discharge planning.
--- NOTE | 2022-01-12 22:13 | PN ---
DATE: 01/12/2022 LOCATION: She is in room 656. SUBJECTIVE: This 51-year-old female remains hospitalized with acute renal failure and metabolic encephalopathy. This encephalopathy has improved dramatically, although she is not quite back to normal as light years ahead of admission. She is currently wanting something to eat and is worried about her physical appearance, which is much different than the last day or two. OBJECTIVE: VITAL SIGNS: Stable. She is afebrile. Blood pressures are starting to elevate a little bit, which is a good sign from a septic standpoint. CHEST: Clear to auscultation and oxygen has gone today. HEART: Regular rate and rhythm. ABDOMEN: Benign. EXTREMITIES: No significant edema. NEUROLOGIC: Intact. LABORATORY DATA: Creatinine did decrease from admission at 6.5-5.9. Sodium is up to 133 and hopefully we will see continued improvement. Blood cultures remain positive for gram-negative rods without ID or sensitivities to date. ASSESSMENT: 1. Gram-negative sepsis, likely urinary in origin. 2. Acute renal failure. 3. Recent contrast for CT scan at a couple of weeks ago. 4. Blood pressures improving. 5. Metabolic encephalopathy, improving. PLAN: Continue hydration. Follow labs. Await sensitivities of gram-negative rods and ID and blood with continued supportive care. SILVIA DR: Mirella TID: [id number]
[2022-01-12 22:46] VITALS: BP 156/97
[2022-01-12] MEDS ORDERED: VANCOMYCIN RANDOM LEVEL. MC ONE (23:00)
[2022-01-13] MEDS: ONDANSETRON PF 4 MG/2 ML VIAL. IVP PRN (00:45)
[2022-01-13 02:12] VITALS: BP 119/63
[2022-01-13] MEDS: IV NORMAL SALINE 1000ML BAG 1,000 ML IV PRN (02:25)
[2022-01-13 05:05] LABS: ALBUMIN 1.8 g/dL (3.4-5.0); ALBUMIN/GLOBULIN RATIO 0.4 (1.0-1.7); CALCIUM 8.8 mg/dL (8.5-10.1); CREATININE 4.5 mg/dL (0.6-1.0); GFR 10.3; POTASSIUM 3.9 mmol/L (3.5-5.1); TOTAL BILIRUBIN 1.3 mg/dL (0.2-1.0); TOTAL PROTEIN 6.4 g/dL (6.4-8.2)
[2022-01-13] MEDS: PIPERACILLIN/TAZOBACTAM 2.25 GM in IV NORMAL SALINE 50ML 50 ML IV SCH ×4 (05:49→17:58)
[2022-01-13 07:00] VITALS: BP 135/79
[2022-01-13] MEDS: PANTOPRAZOLE 40 MG TABLET.DR. PO SCH (08:11)
--- NOTE | 2022-01-13 08:51 | PN ---
DATE: 01/13/[address]: Mirella TID: [id number]
--- NOTE | 2022-01-13 09:29 | PDOC ---
DATE OF SERVICE DATE: 01/13/22 TIME: 09:29 SUBJECTIVE ROS Sleeping, her is at bedside , states was having some nausea earlier today No Vomiting, drinking fluids but didnt eat breakfast. Good UOP OBJECTIVE Vital Signs Vital Signs Date Time Temp Pulse Resp B/P (MAP) Pulse Ox O2 Delivery O2 Flow Rate FiO2 01/13/22 08:00 Room Air 01/13/22 02:12 97.8 70 18 119/63 (81) 91 2.0 97.8 I & 0 Intake and Output 01/13/22 07:00 Intake Total 1725 ml Output Total 1600 ml Balance 125 ml Intake Oral 1725 ml Output Urine Total 1600 ml # Voids 1 PHYSICAL EXAM Physical Exam General- NAD, sleeping , at bedside HEEN OM Dry, Anicteric Neck Supple Lungs CTA, Non labored CV S1S2 , No rub Ext No LE edema No bautista, No CVA or SP tenderness Abd Soft, nt Neuro Grossly normal, moving al extrem. Psych Stable, cooperative DIAGNOSIS/ASSESSMENT Assessment & Plan MIRA - ATN suspect 2/2 Severe Dehydration/NSAID/Sepsis CT with IV contrast Cr 0.7 at [facility] on 12/26 . Baseline Cr at [facility] 1.1 in 2019 . E-Lytes stable. US unremarkable, Creatinine trending down 6.5-->4.5 UA cw UTI , Cx not done, not sure if cancelled by lab IV NS , Bautista ordered and discused with RN 01/11- Not placed , Strict I/O ? accuracy . Avoid Nephrotoxinss. She Recd Vancomycin . 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 Recommended fu in 5-6 weeks. Patient dotty not follow up with Nephrology since AMS 2/2 Sepsis/Rule Out UTI.I have ordered UA . Defer to primary HTN- Hx of uncontrolled HTN in the past ( 2012). COMMENT/RELEVANT DATA Meds Current Medications Medications (Trade) Dose Ordered Sig/Stanton Start Time Stop Time Status Last Admin Dose Admin Acetaminophen (Tylenol Supp) 650 mg PRN Q4HRS PRN 01/11/22 23:30 01/12/22 17:40 650 MG Ondansetron HCl (Zofran) 4 mg PRN Q6HRS PRN 01/11/22 04:45 01/13/22 00:45 4 MG Pantoprazole Sodium (Protonix) 40 mg DAILYAC 01/13/22 08:00 01/13/22 08:11 40 MG Piperacillin Sod/ Tazobactam Sod 2.25 gm/Sodium Chloride 50 ml @ 100 mls/hr Q6HRS 01/11/22 14:00 01/13/22 05:49 100 MLS/HR Piperacillin Sod/ Tazobactam Sod 4.5 gm/Dextrose 100 ml @ 200 mls/hr 1X ONCE 01/10/22 23:30 01/10/22 23:59 DC 01/10/22 23:30 200 MLS/HR Sodium Chloride 1,000 ml @ 125 mls/hr CONT PRN 01/11/22 11:30 01/13/22 02:25 125 MLS/HR Vancomycin HCl (Vanco Per Pharmacy) 1 each PRN DAILY PRN 01/10/22 23:15 01/11/22 13:43 DC 01/11/22 03:01 1 EACH Vancomycin HCl (Vancomycin Random Level) 1 each 1X ONCE 01/12/22 23:00 01/11/22 13:43 DC Vancomycin HCl 2 gm/Sodium Chloride 500 ml @ 250 mls/hr 1X ONCE 01/11/22 00:00 01/11/22 01:59 DC 01/11/22 00:00 250 MLS/HR Lab Laboratory Tests Test 01/13/22 04:15 Sodium Level 135 mmol/L (136-145) Potassium Level 3.9 mmol/L (3.5-5.1) Chloride Level 102 mmol/L (98-107) Carbon Dioxide Level 19 mmol/L (21-32) Anion Gap 14 (6-14) Blood Urea Nitrogen 76 mg/dL (7-20) Creatinine 4.5 mg/dL (0.6-1.0) Estimated GFR (Cockcroft-Gault) 10.3 BUN/Creatinine Ratio 17 (6-20) Glucose Level 136 mg/dL (70-99) Calcium Level 8.8 mg/dL (8.5-10.1) Total Bilirubin 1.3 mg/dL (0.2-1.0) Aspartate Amino Transf (AST/SGOT) 37 U/L (15-37) Alanine Aminotransferase (ALT/SGPT) 46 U/L (14-59) Alkaline Phosphatase 217 U/L (46-116) Total Protein 6.4 g/dL (6.4-8.2) Albumin 1.8 g/dL (3.4-5.0) Albumin/Globulin Ratio 0.4 (1.0-1.7) Results All relevant outside records, renal labs, imaging studies, telemetry/EKG's were reviewed. Justicifation of Admission Dx: Justifications for Admission: Justification of Admission Dx: Yes Acute Renal Failure: 3-Fold Rise in Serum CreREJI Vang MD Jan 13, 2022 09:29
[2022-01-13 11:00] VITALS: BP 159/98
[2022-01-13] MEDS: SODIUM BICARBONATE VIAL 150 MEQ in IV DEXTROSE 5% 1,000 ML IV SCH ×2 (12:05→23:56)
--- NOTE | 2022-01-13 14:18 | PDOC ---
Infectious Disease Note Subjective Subjective pt is feeling better ROS ROS no n/v/d/ Vital Sign Vital Signs Vital Signs Date Time Temp Pulse Resp B/P (MAP) Pulse Ox O2 Delivery O2 Flow Rate FiO2 01/13/22 11:00 97.1 70 22 159/98 (118) 97 Nasal Cannula 2.0 97.1 Physical Exam PHYSICAL EXAM GENERAL: Alert, oriented female, not in any distress. VITAL SIGNS: stable HEENT: Both pupils are round and reacting. No conjunctival lesion. No lesion in the mouth. NECK: Supple, no JVP, no lymphadenopathy. LUNGS: Clear. HEART: S1, S2, regular. ABDOMEN: Soft, nontender, no organomegaly. EXTREMITIES: No edema or cyanosis. SKIN: Unremarkable. NEUROLOGIC: The patient is a bit slow, but able to communicate and answer all the questions appropriately. No focal deficit. Labs Lab Laboratory Tests Test 01/13/22 04:15 Sodium Level 135 mmol/L (136-145) Potassium Level 3.9 mmol/L (3.5-5.1) Chloride Level 102 mmol/L (98-107) Carbon Dioxide Level 19 mmol/L (21-32) Anion Gap 14 (6-14) Blood Urea Nitrogen 76 mg/dL (7-20) Creatinine 4.5 mg/dL (0.6-1.0) Estimated GFR (Cockcroft-Gault) 10.3 BUN/Creatinine Ratio 17 (6-20) Glucose Level 136 mg/dL (70-99) Calcium Level 8.8 mg/dL (8.5-10.1) Total Bilirubin 1.3 mg/dL (0.2-1.0) Aspartate Amino Transf (AST/SGOT) 37 U/L (15-37) Alanine Aminotransferase (ALT/SGPT) 46 U/L (14-59) Alkaline Phosphatase 217 U/L (46-116) Total Protein 6.4 g/dL (6.4-8.2) Albumin 1.8 g/dL (3.4-5.0) Albumin/Globulin Ratio 0.4 (1.0-1.7) Micro BC G neg sorin Objective Assessment IMPRESSION: 1. Gram-negative sorin bacteremia. It is unclear. It might be from the kidney, but identification is pending. 2. Acute kidney injury. Etiology for acute kidney injury is unclear. 3. Hypertension. 4. Encephalopathy. 5. Abnormal urinalysis, it could be infection or could be acute kidney injury. Plan Plan of Care Continue antibiotics SAMPSON CALLE MD Jan 13, 2022 14:18
[2022-01-13] MEDS: ACETAMINOPHEN 325 MG TABLET. PO PRN ×2 (14:51→21:30)
[2022-01-13 15:00] VITALS: BP 146/76
[2022-01-13 19:00] VITALS: BP 161/87
[2022-01-13 23:00] VITALS: BP 137/80
[2022-01-14 03:00] VITALS: BP 186/90
[2022-01-14] MEDS: ACETAMINOPHEN 325 MG TABLET. PO PRN ×4 (04:05→20:56)
[2022-01-14 05:11] LABS: ALBUMIN 1.8 g/dL (3.4-5.0); ALBUMIN/GLOBULIN RATIO 0.4 (1.0-1.7); CREATININE 3.5 mg/dL (0.6-1.0); GFR 13.7; POTASSIUM 3.8 mmol/L (3.5-5.1); TOTAL BILIRUBIN 1.3 mg/dL (0.2-1.0); TOTAL PROTEIN 6.6 g/dL (6.4-8.2)
[2022-01-14] MEDS: PIPERACILLIN/TAZOBACTAM 2.25 GM in IV NORMAL SALINE 50ML 50 ML IV SCH ×4 (06:27→17:56)
[2022-01-14 07:00] VITALS: BP 159/98
[2022-01-14] MEDS: PANTOPRAZOLE 40 MG TABLET.DR. PO SCH (08:50)
--- NOTE | 2022-01-14 10:27 | PDOC ---
Provider Note Date of Service: DATE: 01/14/22 TIME: 10:25 Provider Note renal fx slowly bettter, sepsis doing well on zosyn and e coli sens franca all- ongoing HEALY prior to admit or recent LP, will resume dulox and tizan in lower doses , add coreg in place of brevidolol re elevated bp to see if helpful Justifications for Admission Other Justification ED LEZAMA MD Jan 14, 2022 10:27
[2022-01-14 11:00] VITALS: BP 143/73
[2022-01-14] MEDS ORDERED: PANTOPRAZOLE 40 MG TABLET.DR. PO SCH (11:00)
[2022-01-14] MEDS: SODIUM BICARBONATE VIAL 150 MEQ in IV DEXTROSE 5% 1,000 ML IV SCH (11:22)
[2022-01-14] MEDS: CARVEDILOL 3.125 MG TABLET. PO SCH ×2 (11:50→17:59)
[2022-01-14] MEDS: DULoxetine HCL 20 MG CAPSULE.DR PO SCH (11:50)
[2022-01-14] MEDS: ONDANSETRON ODT 4 MG TAB.RAPDIS. PO SCH ×2 (11:50→17:56)
--- NOTE | 2022-01-14 12:13 | PDOC ---
DATE OF SERVICE DATE: 01/14/22 TIME: 12:10 SUBJECTIVE ROS Sleeping, son at bedside , he reports she has been throwing up, nausea OBJECTIVE Vital Signs Vital Signs Date Time Temp Pulse Resp B/P (MAP) Pulse Ox O2 Delivery O2 Flow Rate FiO2 01/14/22 11:50 68 159/98 01/14/22 11:00 98.5 18 96 Room Air 98.5 01/13/22 15:00 2.0 I & 0 Intake and Output 01/14/22 07:00 Intake Total 1750 ml Output Total 1750 ml Balance 0 ml Intake Oral 500 ml IV Total 1250 ml Output Urine Total 1750 ml # Voids 1 # Bowel Movements 2 PHYSICAL EXAM Physical Exam General- NAD, sleeping , at bedside HEEN OM Dry, Anicteric Neck Supple Lungs CTA, Non labored CV S1S2 , No rub Ext No LE edema No bautista, No CVA or SP tenderness Abd Soft, nt Neuro Grossly normal, moving al extrem. Psych Stable, cooperative DIAGNOSIS/ASSESSMENT DIAGNOSIS/ASSESSMENT Assessment & Plan [facility] - ATN suspect 2/2 Severe Dehydration/NSAID/Sepsis CT with IV contrast Cr 0.7 at [facility] on 12/26 . Baseline Cr at [facility] 1.1 in 2019 . E-Lytes stable. US unremarkable, Creatinine trending down 6.5-->4.5 -->3.5 UA cw UTI , Bautista discussed with RN 01/11- Not placed , accuracy . Avoid Nephrotoxinss. 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 Recommended fu in 5-6 weeks. Patient did not follow up with Nephrology since AMS 2/2 Sepsis/Rule Out UTI.I have ordered UA . Defer to primary HTN- Hx of uncontrolled HTN in the past ( 2012). COMMENT/RELEVANT DATA Meds Current Medications Medications (Trade) Dose Ordered Sig/Stanton Start Time Stop Time Status Last Admin Dose Admin Acetaminophen (Tylenol Supp) 650 mg PRN Q4HRS PRN 01/11/22 23:30 01/12/22 17:40 650 MG Acetaminophen (Tylenol) 650 mg PRN Q6HRS PRN 01/13/22 14:30 01/14/22 09:22 650 MG Amitriptyline HCl (Elavil) 50 mg QHS 01/14/22 21:00 Carvedilol (Coreg) 3.125 mg BIDWMEALS 01/14/22 11:00 01/14/22 11:50 3.125 MG Duloxetine HCl (Cymbalta) 20 mg DAILY 01/14/22 11:00 01/14/22 11:50 20 MG Ondansetron HCl (Zofran Odt) 4 mg Q6HRS 01/14/22 12:00 01/14/22 11:50 4 MG Ondansetron HCl (Zofran) 4 mg PRN Q6HRS PRN 01/11/22 04:45 01/13/22 00:45 4 MG Pantoprazole Sodium (Protonix) 40 mg DAILYAC 01/14/22 11:00 01/14/22 10:41 DC Piperacillin Sod/ Tazobactam Sod 2.25 gm/Sodium Chloride 50 ml @ 100 mls/hr Q6HRS 01/11/22 14:00 01/14/22 11:49 100 MLS/HR Piperacillin Sod/ Tazobactam Sod 4.5 gm/Dextrose 100 ml @ 200 mls/hr 1X ONCE 01/10/22 23:30 01/10/22 23:59 DC 01/10/22 23:30 200 MLS/HR Sodium Bicarbonate 150 meq/Dextrose 1,150 ml @ 100 mls/hr [id number] 01/13/22 12:00 01/14/22 11:22 100 MLS/HR Sodium Chloride 1,000 ml @ 125 mls/hr CONT PRN 01/11/22 11:30 01/13/22 11:00 DC 01/13/22 02:25 125 MLS/HR Tizanidine HCl (Zanaflex) 2 mg PRN Q8HRS PRN 01/14/22 10:30 Vancomycin HCl (Vanco Per Pharmacy) 1 each PRN DAILY PRN 01/10/22 23:15 01/11/22 13:43 DC 01/11/22 03:01 1 EACH Vancomycin HCl (Vancomycin Random Level) 1 each 1X ONCE 01/12/22 23:00 01/11/22 13:43 DC Vancomycin HCl 2 gm/Sodium Chloride 500 ml @ 250 mls/hr 1X ONCE 01/11/22 00:00 01/11/22 01:59 DC 01/11/22 00:00 250 MLS/HR Lab Laboratory Tests Test 01/14/22 04:00 Sodium Level 131 mmol/L (136-145) Potassium Level 3.8 mmol/L (3.5-5.1) Chloride Level 97 mmol/L (98-107) Carbon Dioxide Level 24 mmol/L (21-32) Anion Gap 10 (6-14) Blood Urea Nitrogen 59 mg/dL (7-20) Creatinine 3.5 mg/dL (0.6-1.0) Estimated GFR (Cockcroft-Gault) 13.7 BUN/Creatinine Ratio 17 (6-20) Glucose Level 218 mg/dL (70-99) Calcium Level 9.0 mg/dL (8.5-10.1) Total Bilirubin 1.3 mg/dL (0.2-1.0) Aspartate Amino Transf (AST/SGOT) 24 U/L (15-37) Alanine Aminotransferase (ALT/SGPT) 37 U/L (14-59) Alkaline Phosphatase 192 U/L (46-116) Total Protein 6.6 g/dL (6.4-8.2) Albumin 1.8 g/dL (3.4-5.0) Albumin/Globulin Ratio 0.4 (1.0-1.7) Results All relevant outside records, renal labs, imaging studies, telemetry/EKG's were reviewed. Justicifation of Admission Dx: Justifications for Admission: Justification of Admission Dx: Yes Acute Renal Failure: 3-Fold Rise in Serum REJI Hernadez MD Jan 14, 2022 12:13
[2022-01-14 14:30] VITALS: BP 161/83
--- NOTE | 2022-01-14 16:05 | PDOC ---
Infectious Disease Note Subjective: Subjective Patient feels better though has no appetite Still has some nausea Still has left flank pain Denies fever, chills, vomiting, diarrhea, abdominal pain shortness of breath or cough or sore throat or headache Vital Signs: Vital Signs Vital Signs Date Time Temp Pulse Resp B/P (MAP) Pulse Ox O2 Delivery O2 Flow Rate FiO2 01/14/22 14:30 99.3 68 20 161/83 (109) 94 Room Air 99.3 01/13/22 15:00 2.0 Physical Exam: PHYSICAL EXAM GENERAL: Alert, oriented female, not in any distress. VITAL SIGNS: stable HEENT: Both pupils are round and reacting. No conjunctival lesion. No lesion in the mouth. NECK: Supple, no JVP, no lymphadenopathy. LUNGS: Clear. HEART: S1, S2, regular. ABDOMEN: Soft, nontender, no organomegaly. EXTREMITIES: No edema or cyanosis. SKIN: Unremarkable. NEUROLOGIC: The patient is a bit slow, but able to communicate and answer all the questions appropriately. No focal deficit. Medications: Inpatient Meds: Medications reviewed. Labs: Lab Laboratory Tests Test 01/14/22 04:00 Sodium Level 131 mmol/L (136-145) Potassium Level 3.8 mmol/L (3.5-5.1) Chloride Level 97 mmol/L (98-107) Carbon Dioxide Level 24 mmol/L (21-32) Anion Gap 10 (6-14) Blood Urea Nitrogen 59 mg/dL (7-20) Creatinine 3.5 mg/dL (0.6-1.0) Estimated GFR (Cockcroft-Gault) 13.7 BUN/Creatinine Ratio 17 (6-20) Glucose Level 218 mg/dL (70-99) Calcium Level 9.0 mg/dL (8.5-10.1) Total Bilirubin 1.3 mg/dL (0.2-1.0) Aspartate Amino Transf (AST/SGOT) 24 U/L (15-37) Alanine Aminotransferase (ALT/SGPT) 37 U/L (14-59) Alkaline Phosphatase 192 U/L (46-116) Total Protein 6.6 g/dL (6.4-8.2) Albumin 1.8 g/dL (3.4-5.0) Albumin/Globulin Ratio 0.4 (1.0-1.7) Objective: Assessment: 1. E coli bacteremia source 2. Acute kidney injury. Etiology for acute kidney injury is unclear. 3. E. coli urinary tract infection 4. Encephalopathy. Improved 5. hypertension 6. Poor appetite likely from [facility] Plan: Plan of Care Change Zosyn to ceftriaxone Encouraged patient to increase her p.o. intake Maintain hydration Repeat blood cultures in a.m. Continue supportive care Monitor labs and cultures Discussed with at bedside Discussed with VICENTE PONCE MD Jan 14, 2022 16:05
[2022-01-14 19:30] VITALS: BP 130/70
[2022-01-14] MEDS: AMITRIPTYLINE HCL 25 MG TABLET. PO SCH (20:40)
[2022-01-14] MEDS: tiZANidine 4 MG TABLET. PO PRN (20:41)
[2022-01-14] MEDS: cefTRIAXone IV Push 2 GM VIAL. IVP SCH (20:54)
[2022-01-15] MEDS: SODIUM BICARBONATE VIAL 150 MEQ in IV DEXTROSE 5% 1,000 ML IV SCH (00:47)
[2022-01-15] MEDS: ONDANSETRON ODT 4 MG TAB.RAPDIS. PO SCH ×4 (00:47→17:51)
[2022-01-15 03:35] VITALS: BP 152/84
[2022-01-15] MEDS: ACETAMINOPHEN 325 MG TABLET. PO PRN ×4 (05:42→17:48)
[2022-01-15] MEDS: tiZANidine 4 MG TABLET. PO PRN ×2 (05:43→17:48)
[2022-01-15 07:00] VITALS: BP 128/63
[2022-01-15] MEDS: DULoxetine HCL 20 MG CAPSULE.DR PO SCH (08:30)
[2022-01-15] MEDS: CARVEDILOL 3.125 MG TABLET. PO SCH (08:30)
[2022-01-15] MEDS: PANTOPRAZOLE 40 MG TABLET.DR. PO SCH (08:30)
--- NOTE | 2022-01-15 09:22 | PDOC ---
Provider Note Date of Service: DATE: 01/15/22 TIME: 09:20 Provider Note vss, no temp, bp better - HEALY better likely from new meds- will ind coreg , rest same re renal fx, labs pending- iv rocep re bacteremia fro e coli Justifications for Admission Other Justification ED LEZAMA MD January 15, 2022 09:22
[2022-01-15 09:52] LABS: CALCIUM 8.3 mg/dL (8.5-10.1); CREATININE 2.6 mg/dL (0.6-1.0); GFR 19.3
[2022-01-15] MEDS ORDERED: POTASSIUM CHLORIDE 20 MEQ TABLET.ER. PO ONE (10:15)
[2022-01-15 11:00] VITALS: BP 121/60
--- NOTE | 2022-01-15 12:04 | PDOC ---
DATE OF SERVICE DATE: 01/15/22 TIME: 12:04 SUBJECTIVE ROS , at bedside , still c/o nausea , Not eating- Per She has not been participating in Conversation since yesterday , sleeping with face covered OBJECTIVE Vital Signs Vital Signs Date Time Temp Pulse Resp B/P (MAP) Pulse Ox O2 Delivery O2 Flow Rate FiO2 01/15/22 08:30 72 152/84 01/15/22 08:00 Room Air 01/15/22 07:00 98.6 19 89 98.6 I & 0 Intake and Output 01/15/22 07:00 Intake Total 1850 ml Output Total 250 ml Balance 1600 ml Intake Oral 550 ml IV Total 1300 ml Output Urine Total 250 ml # Voids 2 # Bowel Movements 1 PHYSICAL EXAM Physical Exam General- NAD, sleeping , at bedside HEEN Anicteric Neck Supple Lungs CTA, Non labored CV S1S2 , No rub Ext No LE edema No bautista, No CVA or SP tenderness Abd Soft, nt Neuro Grossly normal, moving al extrem. Psych Stable DIAGNOSIS/ASSESSMENT Assessment & Plan [facility] - ATN suspect 2/2 Severe Dehydration/NSAID/Sepsis CT with IV contrast Cr 0.7 at [facility] on 12/26 . Baseline Cr at [facility] 1.1 in 2019 . E-Lytes stable. US unremarkable, Creatinine trending down UA cw UTI , Bautista was ordered and tracy RN 01/11- Not placed , UOp ? accuracy . Avoid Nephrotoxinss. She Recd Vancomycin in the ER Acidosis- Resolved. DC bicarb gtt N/V - per primary . 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 Recommended fu in 5-6 weeks. Patie nt did not follow up with Nephrology since AMS 2/2 Sepsis/Rule Out UTI.I have ordered UA . Defer to primary HTN- Hx of uncontrolled HTN in the past ( 2012). COMMENT/RELEVANT DATA Meds Current Medications Medications (Trade) Dose Ordered Sig/Stanton Start Time Stop Time Status Last Admin Dose Admin Acetaminophen (Tylenol Supp) 650 mg PRN Q4HRS PRN 01/11/22 23:30 01/12/22 17:40 650 MG Acetaminophen (Tylenol) 650 mg PRN Q6HRS PRN 01/13/22 14:30 01/15/22 11:38 650 MG Amitriptyline HCl (Elavil) 50 mg QHS 01/14/22 21:00 01/14/22 20:40 50 MG Carvedilol (Coreg) 6.25 mg BIDWMEALS 01/15/22 17:00 Ceftriaxone Sodium (Rocephin) 2 gm Q24H 01/14/22 21:00 01/14/22 20:54 2 GM Duloxetine HCl (Cymbalta) 20 mg DAILY 01/14/22 11:00 01/15/22 08:30 20 MG Ondansetron HCl (Zofran Odt) 4 mg Q6HRS 01/14/22 12:00 01/15/22 11:37 4 MG Ondansetron HCl (Zofran) 4 mg PRN Q6HRS PRN 01/11/22 04:45 01/13/22 00:45 4 MG Pantoprazole Sodium (Protonix) 40 mg DAILYAC 01/14/22 11:00 01/14/22 10:41 DC Piperacillin Sod/ Tazobactam Sod 2.25 gm/Sodium Chloride 50 ml @ 100 mls/hr Q6HRS 01/11/22 14:00 01/14/22 18:26 DC 01/14/22 17:56 100 MLS/HR Piperacillin Sod/ Tazobactam Sod 4.5 gm/Dextrose 100 ml @ 200 mls/hr 1X ONCE 01/10/22 23:30 01/10/22 23:59 DC 01/10/22 23:30 200 MLS/HR Potassium Chloride (Klor-Con) 10 meq BID 01/15/22 21:00 Sodium Bicarbonate 150 meq/Dextrose 1,150 ml @ 100 mls/hr [id number] 01/13/22 12:00 01/15/22 00:47 100 MLS/HR Sodium Chloride 1,000 ml @ 125 mls/hr CONT PRN 01/11/22 11:30 01/13/22 11:00 DC 01/13/22 02:25 125 MLS/HR Tizanidine HCl (Zanaflex) 2 mg PRN Q8HRS PRN 01/14/22 10:30 01/15/22 05:43 2 MG Vancomycin HCl (Vanco Per Pharmacy) 1 each PRN DAILY PRN 01/10/22 23:15 01/11/22 13:43 DC 01/11/22 03:01 1 EACH Vancomycin HCl (Vancomycin Random Level) 1 each 1X ONCE 01/12/22 23:00 01/11/22 13:43 DC Vancomycin HCl 2 gm/Sodium Chloride 500 ml @ 250 mls/hr 1X ONCE 01/11/22 00:00 01/11/22 01:59 DC 01/11/22 00:00 250 MLS/HR Lab Laboratory Tests Test 01/15/22 09:00 Sodium Level 132 mmol/L (136-145) Potassium Level 3.0 mmol/L (3.5-5.1) Chloride Level 92 mmol/L (98-107) Carbon Dioxide Level 30 mmol/L (21-32) Anion Gap 10 (6-14) Blood Urea Nitrogen 35 mg/dL (7-20) Creatinine 2.6 mg/dL (0.6-1.0) Estimated GFR (Cockcroft-Gault) 19.3 Glucose Level 291 mg/dL (70-99) Calcium Level 8.3 mg/dL (8.5-10.1) Results All relevant outside records, renal labs, imaging studies, telemetry/EKG's were reviewed. Justicifation of Admission Dx: Justifications for Admission: Justification of Admission Dx: Yes Acute Renal Failure: 3-Fold Rise in Serum REJI Hernadez MD January 15, 2022 12:04
--- NOTE | 2022-01-15 13:00 | PDOC ---
Infectious Disease Note Subjective: Subjective Patient feels better though now has diarrhea appetite remains poor Pain has improved No fevers, nausea or vomiting Vital Signs: Vital Signs Vital Signs Date Time Temp Pulse Resp B/P (MAP) Pulse Ox O2 Delivery O2 Flow Rate FiO2 01/15/22 11:00 98.6 68 19 121/60 (80) 89 Room Air 98.6 Physical Exam: PHYSICAL EXAM GENERAL: Alert, oriented female, not in any distress. VITAL SIGNS: stable HEENT: Both pupils are round and reacting. No conjunctival lesion. No lesion in the mouth. NECK: Supple, no JVP, no lymphadenopathy. LUNGS: Clear. HEART: S1, S2, regular. ABDOMEN: Soft, nontender, no organomegaly. EXTREMITIES: No edema or cyanosis. SKIN: Unremarkable. NEUROLOGIC: The patient is a bit slow, but able to communicate and answer all the questions appropriately. No focal deficit. Medications: Inpatient Meds: Medications reviewed. Labs: Lab Laboratory Tests Test 01/15/22 09:00 Sodium Level 132 mmol/L (136-145) Potassium Level 3.0 mmol/L (3.5-5.1) Chloride Level 92 mmol/L (98-107) Carbon Dioxide Level 30 mmol/L (21-32) Anion Gap 10 (6-14) Blood Urea Nitrogen 35 mg/dL (7-20) Creatinine 2.6 mg/dL (0.6-1.0) Estimated GFR (Cockcroft-Gault) 19.3 Glucose Level 291 mg/dL (70-99) Calcium Level 8.3 mg/dL (8.5-10.1) Objective: Assessment: 1. E coli bacteremia source 2. Acute kidney injury. Etiology for acute kidney injury is unclear. 3. E. coli urinary tract infection 4. Encephalopathy. Improved 5. hypertension 6. Poor appetite likely from [facility] 7. Diarrhea check C. difficile PCR Plan: Plan of Care Continue ceftriaxone Follow-up repeat blood cultures January 15, 2022 Check C. difficile PCR Continue supportive care Discussed with son at bedside VICENTE CALLE MD January 15, 2022 13:00
[2022-01-15] MEDS: IV NORMAL SALINE 1000ML BAG 1,000 ML IV SCH (13:37)
[2022-01-15 15:00] VITALS: BP 130/72
[2022-01-15] MEDS: ONDANSETRON PF 4 MG/2 ML VIAL. IVP PRN (17:47)
--- NOTE | 2022-01-15 18:11 | NUR ---
pt requested to hold off on scheduled Q6H PO zofran at 1800 and instead give zofran IVP due to patient nausea and vomiting
[2022-01-15 19:28] VITALS: BP 121/59
[2022-01-15] MEDS: cefTRIAXone IV Push 2 GM VIAL. IVP SCH (22:12)
[2022-01-15] MEDS: LACTOBACILLUS RHAMNOSUS GG 1 CAPSULE. PO SCH (22:13)
[2022-01-15] MEDS: POTASSIUM CHLORIDE 10 MEQ TABLET.ER. PO SCH (22:13)
[2022-01-15] MEDS: AMITRIPTYLINE HCL 25 MG TABLET. PO SCH (22:14)
[2022-01-15 22:15] VITALS: BP 143/80
[2022-01-16] VITALS (7 sets, daily range): BP systolic 137–184; BP diastolic 79–90
[2022-01-16] MEDS: IV NORMAL SALINE 1000ML BAG 1,000 ML IV SCH (02:07)
[2022-01-16] MEDS: tiZANidine 4 MG TABLET. PO PRN ×3 (02:08→19:25)
[2022-01-16] MEDS: ONDANSETRON PF 4 MG/2 ML VIAL. IVP PRN (02:10)
[2022-01-16] MEDS: ACETAMINOPHEN 325 MG TABLET. PO PRN ×3 (02:10→18:11)
[2022-01-16 05:13] LABS: CALCIUM 8.5 mg/dL (8.5-10.1); CREATININE 2.4 mg/dL (0.6-1.0); GFR 21.2; POTASSIUM 3.1 mmol/L (3.5-5.1)
[2022-01-16] MEDS: POTASSIUM CHLORIDE 10 MEQ TABLET.ER. PO SCH ×2 (07:47→21:06)
[2022-01-16] MEDS: DULoxetine HCL 20 MG CAPSULE.DR PO SCH (07:47)
[2022-01-16] MEDS: ONDANSETRON ODT 4 MG TAB.RAPDIS. PO SCH ×4 (07:47→18:10)
[2022-01-16] MEDS: LACTOBACILLUS RHAMNOSUS GG 1 CAPSULE. PO SCH ×2 (07:47→21:06)
[2022-01-16] MEDS: PANTOPRAZOLE 40 MG TABLET.DR. PO SCH (07:47)
[2022-01-16] MEDS: CARVEDILOL 6.25 MG TABLET. PO SCH ×3 (07:48→18:12)
[2022-01-16] MEDS: POTASSIUM CL 40MEQ IN 0.9%NACL 1,000 ML IV SCH ×2 (08:26→22:15)
--- NOTE | 2022-01-16 09:22 | PDOC ---
DATE OF SERVICE DATE: 01/16/22 TIME: 09:21 SUBJECTIVE ROS Daughter at bedside ; Pt sleeping, doesn't participate or or open her eyes Per daughter she has been up and talking, she still has some nausea, Diarrhea. ambulating to the BR not eating well OBJECTIVE Vital Signs Vital Signs Date Time Temp Pulse Resp B/P (MAP) Pulse Ox O2 Delivery O2 Flow Rate FiO2 01/16/22 07:48 96 137/79 01/16/22 07:00 98.5 16 100 Room Air 98.5 I & 0 Intake and Output 01/16/22 07:00 Intake Total 2640 ml Balance 2640 ml Intake Oral 1640 ml IV Total 1000 ml # Voids 7 # Bowel Movements 2 PHYSICAL EXAM Physical Exam General- NAD, sleeping , HEEN Anicteric Neck Supple Lungs CTA, Non labored CV S1S2 , No rub Ext No LE edema No bautista, No CVA or SP tenderness Abd Soft, nt Neuro Grossly normal, moving al extrem. Psych Stable DIAGNOSIS/ASSESSMENT Assessment & Plan [facility] - ATN suspect 2/2 Severe Dehydration/NSAID/Sepsis CT with IV contrast Cr 0.7 at [facility] on 12/26 . Baseline Cr at [facility] 1.1 in 2018 . E-Lytes stable. US unremarkable, Creatinine trending down UA cw UTI , Bautista was ordered and dw RN 01/11- Not placed , UOp ? accuracy . Avoid Nephrotoxinss. She Recd Vancomycin in the ER Acidosis- Resolved. bicarb gtt dced N/V - per primary . Nutrition per Dr Lamas HypoNatremia- suspect 2/2 dehydration stable Sepsis- Blood Cx Gram negative rods Hx of micr hematuria- S/P renal Bx on review of records from our office -, in 2- Dx with thin basement membrane disease . Recommended fu in 5-6 weeks. Patient did not follow up with Nephrology since AMS 2/2 Sepsis/Rule Out UTI.I have ordered UA . Defer to primary HTN- Hx of uncontrolled HTN in the past ( 2012). COMMENT/RELEVANT DATA Meds Current Medications Medications (Trade) Dose Ordered Sig/Stanton Start Time Stop Time Status Last Admin Dose Admin Acetaminophen (Tylenol Supp) 650 mg PRN Q4HRS PRN 01/11/22 23:30 01/12/22 17:40 650 MG Acetaminophen (Tylenol) 650 mg PRN Q6HRS PRN 01/13/22 14:30 01/16/22 08:25 650 MG Amitriptyline HCl (Elavil) 50 mg QHS 01/14/22 21:00 01/15/22 22:14 50 MG Carvedilol (Coreg) 6.25 mg BIDWMEALS 01/15/22 17:00 01/16/22 07:48 6.25 MG Ceftriaxone Sodium (Rocephin) 2 gm Q24H 01/14/22 21:00 01/15/22 22:12 2 GM Duloxetine HCl (Cymbalta) 20 mg DAILY 01/14/22 11:00 01/16/22 07:47 20 MG Lactobacillus Rhamnosus (Culturelle) 1 cap BID 01/15/22 21:00 01/16/22 07:47 1 CAP Ondansetron HCl (Zofran Odt) 4 mg Q6HRS 01/14/22 12:00 01/16/22 07:47 4 MG Ondansetron HCl (Zofran) 4 mg PRN Q6HRS PRN 01/11/22 04:45 01/16/22 02:10 4 MG Pantoprazole Sodium (Protonix) 40 mg DAILYAC 01/14/22 11:00 01/14/22 10:41 DC Piperacillin Sod/ Tazobactam Sod 2.25 gm/Sodium Chloride 50 ml @ 100 mls/hr Q6HRS 01/11/22 14:00 01/14/22 18:26 DC 01/14/22 17:56 100 MLS/HR Piperacillin Sod/ Tazobactam Sod 4.5 gm/Dextrose 100 ml @ 200 mls/hr 1X ONCE 01/10/22 23:30 01/10/22 23:59 DC 01/10/22 23:30 200 MLS/HR Potassium Chloride/Sodium Chloride 1,000 ml @ 75 mls/hr [id number] 01/16/22 08:00 01/16/22 08:26 75 MLS/HR Potassium Chloride (Klor-Con) 10 meq BID 01/15/22 21:00 01/16/22 07:47 10 MEQ Sodium Bicarbonate 150 meq/Dextrose 1,150 ml @ 100 mls/hr [id number] 01/13/22 12:00 01/15/22 13:16 DC 01/15/22 00:47 100 MLS/HR Sodium Chloride 1,000 ml @ 75 mls/hr [id number] 01/15/22 14:00 01/16/22 02:07 75 MLS/HR Tizanidine HCl (Zanaflex) 2 mg PRN Q8HRS PRN 01/14/22 10:30 01/16/22 02:08 2 MG Vancomycin HCl (Vanco Per Pharmacy) 1 each PRN DAILY PRN 01/10/22 23:15 01/11/22 13:43 DC 01/11/22 03:01 1 EACH Vancomycin HCl (Vancomycin Random Level) 1 each 1X ONCE 01/12/22 23:00 01/11/22 13:43 DC Vancomycin HCl 2 gm/Sodium Chloride 500 ml @ 250 mls/hr 1X ONCE 01/11/22 00:00 01/11/22 01:59 DC 01/11/22 00:00 250 MLS/HR Lab Laboratory Tests Test 01/16/22 03:15 Sodium Level 134 mmol/L (136-145) Potassium Level 3.1 mmol/L (3.5-5.1) Chloride Level 95 mmol/L (98-107) Carbon Dioxide Level 29 mmol/L (21-32) Anion Gap 10 (6-14) Blood Urea Nitrogen 28 mg/dL (7-20) Creatinine 2.4 mg/dL (0.6-1.0) Estimated GFR (Cockcroft-Gault) 21.2 Glucose Level 180 mg/dL (70-99) Calcium Level 8.5 mg/dL (8.5-10.1) Results All relevant outside records, renal labs, imaging studies, telemetry/EKG's were reviewed. Justicifation of Admission Dx: Justifications for Admission: Justification of Admission Dx: Yes Acute Renal Failure: 3-Fold Rise in Serum CreREJI Vang MD January 16, 2022 09:22
--- NOTE | 2022-01-16 12:29 | PDOC ---
Infectious Disease Note Subjective: Subjective Patient continues to have diarrhea appetite remains poor Continues to have pain and generalized weakness No fevers, nausea or vomiting Vital Signs: Vital Signs Vital Signs Date Time Temp Pulse Resp B/P (MAP) Pulse Ox O2 Delivery O2 Flow Rate FiO2 01/16/22 10:07 97.9 66 17 151/80 (103) 94 Room Air 97.9 Physical Exam: PHYSICAL EXAM GENERAL: Alert, oriented female, not in any distress. VITAL SIGNS: stable HEENT: Both pupils are round and reacting. No conjunctival lesion. No lesion in the mouth. NECK: Supple, no JVP, no lymphadenopathy. LUNGS: Clear. HEART: S1, S2, regular. ABDOMEN: Soft, nontender, no organomegaly. EXTREMITIES: No edema or cyanosis. SKIN: Unremarkable. NEUROLOGIC: The patient is a bit slow, but able to communicate and answer all the questions appropriately. No focal deficit. Medications: Inpatient Meds: Medications reviewed. Labs: Lab Laboratory Tests Test 01/16/22 03:15 Sodium Level 134 mmol/L (136-145) Potassium Level 3.1 mmol/L (3.5-5.1) Chloride Level 95 mmol/L (98-107) Carbon Dioxide Level 29 mmol/L (21-32) Anion Gap 10 (6-14) Blood Urea Nitrogen 28 mg/dL (7-20) Creatinine 2.4 mg/dL (0.6-1.0) Estimated GFR (Cockcroft-Gault) 21.2 Glucose Level 180 mg/dL (70-99) Calcium Level 8.5 mg/dL (8.5-10.1) Objective: Assessment: 1. E coli bacteremia source 2. Acute kidney injury. Etiology for acute kidney injury is unclear. 3. E. coli urinary tract infection 4. Encephalopathy. Improved 5. hypertension 6. Poor appetite likely from [facility] 7. Diarrhea check C. difficile PCR Plan: Plan of Care Continue ceftriaxone Follow-up repeat blood cultures January 15, 2022 Follow-up C. difficile PCR Continue supportive care Discussed with at bedside Discussed with nursing staff VICENTE CALLE MD January 16, 2022 12:29
--- NOTE | 2022-01-16 16:19 | NUR ---
SS following up with discharge planning. SS reviewed pt chart and discussed with pt RN. Pt is currently on room air. COVID19 negative. Pt on IV Rocephin. SS will continue to follow for discharge planning.
[2022-01-16] MEDS: cefTRIAXone IV Push 2 GM VIAL. IVP SCH (21:06)
[2022-01-16] MEDS: AMITRIPTYLINE HCL 25 MG TABLET. PO SCH (21:06)
--- NOTE | 2022-01-16 23:25 | PN ---
DATE: 01/16/2022 DAILY PROGRESS NOTE LOCATION: She is in room 656. SUBJECTIVE: This 51-year-old female remains hospitalized with acute renal failure, metabolic encephalopathy due to urosepsis with E. coli positive blood cultures. She is still weak, tired. Headaches have eased somewhat. She has had no vomiting in the last 24 hours, has ongoing loose stools with C. diff pending. Potassium is up to 3.1 this morning, but it was never added to her IV fluids as discussed yesterday. Creatinine is 2.4 this morning with BUN down to 28. She did eat some yesterday evening for the first time of a substantial amount. OBJECTIVE: VITAL SIGNS: Stable. She is afebrile. GENERAL: She is awake and alert. CHEST: Clear. HEART: Regular rate and rhythm. ABDOMEN: Benign. EXTREMITIES: No significant edema. ASSESSMENT: 1. Gram-negative sepsis from a genitourinary source. 2. Acute renal failure, improving. 3. Recent contrast for CT scan at a couple of weeks ago. 4. Encephalopathy, improving. 5. Diarrhea with Clostridium difficile pending. 6. Hypokalemia with increased replacement ordered. PLAN: Ongoing supportive care. Potassium replacement and follow labs. Await C. diff culture. GOLDEN/MELVIN/LYNNE DR: GOLDEN/penny TID: [id number]
[2022-01-17] MEDS: ONDANSETRON ODT 4 MG TAB.RAPDIS. PO SCH ×3 (00:12→12:31)
[2022-01-17] MEDS: ACETAMINOPHEN 325 MG TABLET. PO PRN ×2 (00:52→12:30)
[2022-01-17 01:08] LABS: HEMOGLOBIN A1C 7.1 % (4.8-5.6)
[2022-01-17 03:35] VITALS: BP 163/78
[2022-01-17 05:05] LABS: CALCIUM 8.5 mg/dL (8.5-10.1); GFR 26.2; POTASSIUM 3.5 mmol/L (3.5-5.1)
[2022-01-17] MEDS: PANTOPRAZOLE 40 MG TABLET.DR. PO SCH ×2 (05:28→08:29)
[2022-01-17] MEDS: tiZANidine 4 MG TABLET. PO PRN (05:28)
[2022-01-17] MEDS: ONDANSETRON PF 4 MG/2 ML VIAL. IVP PRN (05:30)
[2022-01-17 07:00] VITALS: BP 147/72
[2022-01-17] MEDS ORDERED: METOCLOPRAMIDE 10 MG TABLET. PO PRN (08:00)
[2022-01-17] MEDS: POTASSIUM CHLORIDE 10 MEQ TABLET.ER. PO SCH (08:30)
[2022-01-17] MEDS: LACTOBACILLUS RHAMNOSUS GG 1 CAPSULE. PO SCH (08:30)
[2022-01-17] MEDS: CARVEDILOL 6.25 MG TABLET. PO SCH (08:30)
[2022-01-17] MEDS: DULoxetine HCL 20 MG CAPSULE.DR PO SCH (08:30)
--- NOTE | 2022-01-17 09:22 | PDOC ---
DATE OF SERVICE DATE: 01/17/22 TIME: 09:21 SUBJECTIVE ROS No complaints OBJECTIVE Vital Signs Vital Signs Date Time Temp Pulse Resp B/P (MAP) Pulse Ox O2 Delivery O2 Flow Rate FiO2 01/17/22 08:30 71 163/78 01/17/22 07:00 99.2 16 92 Room Air 99.2 I & 0 Intake and Output 01/17/22 06:59 Intake Total 2135 ml Balance 2135 ml Intake Oral 1680 ml IV Total 455 ml # Voids 2 PHYSICAL EXAM Physical Exam General- NAD, sleeping , HEEN Anicteric Neck Supple Lungs CTA, Non labored CV S1S2 , No rub Ext No LE edema No bautista, No CVA or SP tenderness Abd Soft, nt Neuro Grossly normal, moving al extrem. Psych Stable DIAGNOSIS/ASSESSMENT Assessment & Plan [facility] - ATN suspect 2/2 Severe Dehydration/NSAID/Sepsis CT with IV contrast Cr 0.7 at [facility] on 12/26 . Baseline Cr at [facility] 1.1 in 2019 . E-Lytes stable. US unremarkable, Creatinine trending down UA cw UTI , . Avoid Nephrotoxinss. Follow labs with PCP after dc Acidosis- Resolved. 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 Recommended fu in 5-6 weeks. Patient did not follow up with Nephrology since AMS 2/2 Sepsis/Rule Out UTI.I have ordered UA . Defer to primary HTN- Hx of uncontrolled HTN in the past ( 2012). COMMENT/RELEVANT DATA Meds Current Medications Medications (Trade) Dose Ordered Sig/Stanton Start Time Stop Time Status Last Admin Dose Admin Acetaminophen (Tylenol Supp) 650 mg PRN Q4HRS PRN 01/11/22 23:30 01/12/22 17:40 650 MG Acetaminophen (Tylenol) 650 mg PRN Q6HRS PRN 01/13/22 14:30 01/17/22 00:52 650 MG Amitriptyline HCl (Elavil) 50 mg QHS 01/14/22 21:00 01/16/22 21:06 50 MG Carvedilol (Coreg) 6.25 mg [id number] 01/15/22 17:00 01/17/22 08:30 6.25 MG Ceftriaxone Sodium (Rocephin) 2 gm Q24H 01/14/22 21:00 01/16/22 21:06 2 GM Duloxetine HCl (Cymbalta) 20 mg DAILY 01/14/22 11:00 01/17/22 08:30 20 MG Lactobacillus Rhamnosus (Culturelle) 1 cap BID 01/15/22 21:00 01/17/22 08:30 1 CAP Metoclopramide HCl (Reglan) 10 mg PRN [id number] PRN 01/17/22 08:00 Ondansetron HCl (Zofran Odt) 4 mg Q6HRS 01/14/22 12:00 01/17/22 00:12 4 MG Ondansetron HCl (Zofran) 4 mg PRN Q6HRS PRN 01/11/22 04:45 01/17/22 05:30 4 MG Pantoprazole Sodium (Protonix) 40 mg DAILYAC 01/14/22 11:00 01/14/22 10:41 DC Piperacillin Sod/ Tazobactam Sod 2.25 gm/Sodium Chloride 50 ml @ 100 mls/hr Q6HRS 01/11/22 14:00 01/14/22 18:26 DC 01/14/22 17:56 100 MLS/HR Piperacillin Sod/ Tazobactam Sod 4.5 gm/Dextrose 100 ml @ 200 mls/hr 1X ONCE 01/10/22 23:30 01/10/22 23:59 DC 01/10/22 23:30 200 MLS/HR Potassium Chloride/Sodium Chloride 1,000 ml @ 75 mls/hr [id number] 01/16/22 08:00 01/16/22 22:15 75 MLS/HR Potassium Chloride (Klor-Con) 10 meq BID 01/15/22 21:00 01/17/22 08:30 10 MEQ Sodium Bicarbonate 150 meq/Dextrose 1,150 ml @ 100 mls/hr [id number] 01/13/22 12:00 01/15/22 13:16 DC 01/15/22 00:47 100 MLS/HR Sodium Chloride 1,000 ml @ 75 mls/hr [id number] 01/15/22 14:00 01/16/22 14:51 DC 01/16/22 02:07 75 MLS/HR Tizanidine HCl (Zanaflex) 2 mg PRN Q8HRS PRN 01/14/22 10:30 01/17/22 05:28 2 MG Vancomycin HCl (Vanco Per Pharmacy) 1 each PRN DAILY PRN 01/10/22 23:15 01/11/22 13:43 DC 01/11/22 03:01 1 EACH Vancomycin HCl (Vancomycin Random Level) 1 each 1X ONCE 01/12/22 23:00 01/11/22 13:43 DC Vancomycin HCl 2 gm/Sodium Chloride 500 ml @ 250 mls/hr 1X ONCE 01/11/22 00:00 01/11/22 01:59 DC 01/11/22 00:00 250 MLS/HR Lab Laboratory Tests Test 01/17/22 03:50 Sodium Level 134 mmol/L (136-145) Potassium Level 3.5 mmol/L (3.5-5.1) Chloride Level 98 mmol/L (98-107) Carbon Dioxide Level 25 mmol/L (21-32) Anion Gap 11 (6-14) Blood Urea Nitrogen 21 mg/dL (7-20) Creatinine 2.0 mg/dL (0.6-1.0) Estimated GFR (Cockcroft-Gault) 26.2 Glucose Level 149 mg/dL (70-99) Calcium Level 8.5 mg/dL (8.5-10.1) Results All relevant outside records, renal labs, imaging studies, telemetry/EKG's were reviewed. Justicifation of Admission Dx: Justifications for Admission: Justification of Admission Dx: Yes Acute Renal Failure: 3-Fold Rise in Serum Crea REJI MARS MD January 17, 2022 09:22
[2022-01-17 10:55] VITALS: BP 151/89
--- NOTE | 2022-01-17 12:39 | PDOC ---
Infectious Disease Note Subjective: Subjective Patient feels better No fevers, nausea or vomiting eager for dc home today less diarrhea Vital Signs: Vital Signs Vital Signs Date Time Temp Pulse Resp B/P (MAP) Pulse Ox O2 Delivery O2 Flow Rate FiO2 01/17/22 10:55 98.4 77 16 151/89 (109) 94 Room Air 98.4 01/17/22 08:00 2.0 Physical Exam: PHYSICAL EXAM GENERAL: Alert, oriented female, not in any distress. VITAL SIGNS: stable HEENT: Both pupils are round and reacting. No conjunctival lesion. No lesion in the mouth. NECK: Supple, no JVP, no lymphadenopathy. LUNGS: Clear. HEART: S1, S2, regular. ABDOMEN: Soft, nontender, no organomegaly. EXTREMITIES: No edema or cyanosis. SKIN: Unremarkable. NEUROLOGIC: The patient is a bit slow, but able to communicate and answer all the questions appropriately. No focal deficit. Medications: Inpatient Meds: Medications reviewed. Labs: Lab Laboratory Tests Test 01/17/22 03:50 Sodium Level 134 mmol/L (136-145) Potassium Level 3.5 mmol/L (3.5-5.1) Chloride Level 98 mmol/L (98-107) Carbon Dioxide Level 25 mmol/L (21-32) Anion Gap 11 (6-14) Blood Urea Nitrogen 21 mg/dL (7-20) Creatinine 2.0 mg/dL (0.6-1.0) Estimated GFR (Cockcroft-Gault) 26.2 Glucose Level 149 mg/dL (70-99) Calcium Level 8.5 mg/dL (8.5-10.1) Objective: Assessment: 1. E coli bacteremia source 2. Acute kidney injury. Etiology for acute kidney injury is unclear. 3. E. coli urinary tract infection 4. Encephalopathy. Improved 5. hypertension 6. Poor appetite likely from [facility] 7. Diarrhea check C. difficile PCR Plan: Plan of Care Dose ceftriaxone today DC on KEFLEX 500 mg po daily for 7 days starting tomorrow Follow-up repeat blood cultures January 15, 2022 neg so far C. difficile PCR neg Continue supportive care Discussed with at bedside Discussed with nursing staff VICENTE CALLE MD January 17, 2022 12:39
[2022-01-17] MEDS ORDERED: CEPH500C PO (13:31)
--- NOTE | 2022-01-17 13:55 | NUR ---
DISCHARGED PATIENT TO HOME. DISCHARGE INSTRUCTIONS GIVEN. PIV AND HEART MONITOR REMOVED. ESCORTED OFF UNIT PER WHEELCHAIR INTO A PRIVATE VEHICLE.
--- NOTE | 2022-01-17 23:20 | PN ---
DATE: 01/17/2022 LOCATION: She is in room 656. SUBJECTIVE: This 51-year-old female remains hospitalized with acute renal failure, metabolic encephalopathy due to urosepsis with E. coli bacteremia. She is gradually improving and is able to walk around the room much better, ate more yesterday, is drinking lots of fluids. Nursing feels like her vomiting this morning may be related to eating too much. Headaches are still present, but have eased. Stool for C. diff has come back negative and diarrhea is slowing. Potassium is up to 3.5. This morning, creatinine is down to 2. She is anticipating and wanting discharge. Blood cultures are negative at 24 hours on repeat and should be available today at 48 hours, which I believe is ID's trigger for discharge to home on oral antibiotics. OBJECTIVE: VITAL SIGNS: Stable. She is afebrile. Blood pressures have increased. CHEST: Clear. HEART: Regular. ABDOMEN: Benign. NEUROLOGIC: Intact. ASSESSMENT: 1. Gram-negative sepsis from a genitourinary source. 2. Acute renal failure, improving. 3. Encephalopathy, resolved. 4. Diarrhea with Clostridium difficile negative. 5. Hypokalemia, resolved. 6. Ongoing nausea, which again nursing feels is related to drinking too much fluids at any one time. PLAN: Ongoing supportive care. Continue potassium replacement. Await ID's thoughts on timing of discharge. SILVIA DR: Mirella TID: [id number]
== END 2022-01-17 13:55 | disposition home or self-care (01) | DRG 871 ==
LOC: ER 21:11 → 6 SOUTH 23:43
PROVIDERS: ADMIT Family Medicine; ATTEND Family Medicine
DX: A41.51 Sepsis due to Escherichia coli [E. coli] (principal); G93.41 Metabolic encephalopathy; J96.01 Acute respiratory failure with hypoxia; N17.9 Acute kidney failure, unspecified; E87.1 Hypo-osmolality and hyponatremia; J98.11 Atelectasis; N39.0 Urinary tract infection, site not specified; E87.6 Hypokalemia; I10 Essential (primary) hypertension; R29.6 Repeated falls; Z20.822 Contact with and (suspected) exposure to COVID-19; R65.20 Severe sepsis without septic shock; Z80.3 Family history of malignant neoplasm of breast; Z82.5 Family history of asthma and other chronic lower respiratory diseases; Z85.820 Personal history of malignant melanoma of skin; Z90.710 Acquired absence of both cervix and uterus; Z98.82 Breast implant status; F32.A Depression, unspecified; F41.9 Anxiety disorder, unspecified; G89.29 Other chronic pain; K21.9 Gastro-esophageal reflux disease without esophagitis; Z90.49 Acquired absence of other specified parts of digestive tract
CPT/HCPCS: 36415; 70450; 71045; 71250; 74176; 76770; 80048; 80053; 80069; 80307; 81001; 82140; 82550; 83036; 83605; 85007; 85025; 87040; 87077; 87086; 87186; 87426; 87493; 93005; 96365; 96367; J0696; J2405; J2543; J3370; J3480; J3490; J7030; J7040; J7060; 99285-25; G0378